=== PATIENT | female | born 1955 | race African-American/Black ===

== ENCOUNTER 2018-06-13 15:21 | Inpatient (IN) | payer MEDICARE ==
[~2018-06-13] VITALS: Ht 170.2 cm; Wt 70.3 kg
[2018-06-13] MEDS ORDERED: DIATRIZOATE MEGL/DIATRIZOA SOD 30 ML BTL PO ONE ×2 (16:24→17:41)
--- NOTE | 2018-06-13 17:10 | Diagnostic Imaging Report ---
Abdomen/KUB INDICATION: ^g-tube replacement, with gastrografin COMPARISON: None. FINDINGS: Portable, supine image obtained at 1635 hours after the instillation of water-soluble contrast through a percutaneous gastrostomy. The patient is rotated. Medical Devices: Percutaneous gastrostomy in the upper abdomen. It is surrounded by enteric contrast. Bowel: There is no enteric contrast outlining the stomach or bowel. No dilated bowel loops. There is little bowel air. Calcifications: None Organomegaly: None Lung bases: Left lung base is clear. Bones: Unremarkable IMPRESSION: Contrast surrounds the percutaneous gastrostomy. It cannot be confirmed if it is within the stomach. Recommend repeat imaging with better positioning of the patient. Crosstable lateral image is recommended to confirm subcutaneous instillation of contrast. Signed by: Dr. Juanjose Singer MD on 06/13/2018 5:07 PM
--- NOTE | 2018-06-13 18:14 | Diagnostic Imaging Report ---
Abdomen/KUB INDICATION: ^ASSESS G-TUBE PLACEMENT COMPARISON: Abdomen x-ray 1635 hours. FINDINGS: AP and crosstable lateral images of the abdomen obtained at 1746 hours Medical Devices: Percutaneous gastrostomy tube is with in the peritoneum. There is water-soluble contrast in the tube that collects into the left upper quadrant it does not confine to normal gastric contours. A percutaneous catheter is in the right hemiabdomen. Bowel: No enteric contrast in the small bowel or large bowel. There is a large amount of stool throughout the colon. No dilated small bowel loops. Calcifications: None Organomegaly: None Bones: Unremarkable IMPRESSION: Percutaneous gastrostomy is intraperitoneal but not within the stomach. Large amount of stool in the colon consistent with constipation. No bowel obstruction. Signed by: Dr. Juanjose Singer MD on 06/13/2018 6:11 PM
--- NOTE | 2018-06-13 19:05 | NUR ---
RECIEVED REPORT FROM GAVIN SALAZAR DAY SHIFT NURSE.
[2018-06-13] MEDS ORDERED: SODIUM CHLORIDE 0.9% 1000ML 1,000 ML IV ONE (19:15)
--- NOTE | 2018-06-13 19:30 | NUR ---
PT HAS BM. [facility] ON PT.
[2018-06-13] MEDS ORDERED: PANTOPRAZOLE 40 MG 10ML VIAL IV ONE (20:00)
[2018-06-13] MEDS ORDERED: SODIUM CHLORIDE 0.9% 1000ML 1,000 ML IV SCH (20:15)
[2018-06-13 21:45] LABS: BASOPHILS % 0.4 % (0.0-1.0); EOSINOPHILS # (AUTO) 0.3 (0.0-0.4); EOSINOPHILS % 3.4 % (0.0-6.0); HEMATOCRIT 33.9 % (38.2-49.6); LYMPHOCYTES # (AUTO) 0.6 (1.0-3.2); LYMPHOCYTES % 5.6 % (18.0-39.1); MEAN CORPUSCULAR HEMOGLOBIN 25.1 pg (28-32); MEAN CORPUSCULAR HGB CONC 32.4 g/dL (31-35); MEAN CORPUSCULAR VOLUME 77.4 fL (81-99); MONOCYTES # (AUTO) 0.7 (0.2-0.8); MONOCYTES % 6.8 % (4.4-11.3); NEUTROPHILS # (AUTO) 8.1 (2.1-6.9); NEUTROPHILS % 83.2 % (38.7-80.0); PLATELET COUNT 139 x10e3/uL (140-360); RED BLOOD COUNT 4.38 x10e6/uL (4.3-5.7); RED CELL DISTRIBUTION WIDTH 17.3 % (11.7-14.4)
[2018-06-13 22:07] LABS: ALANINE AMINOTRANSFERASE 20 IU/L (0-55); ALBUMIN/GLOBULIN RATIO 0.7 (0.8-2.0); ALKALINE PHOSPHATASE 100 IU/L (40-150); ANION GAP 14.2 mmol/L (8-16); BLOOD UREA NITROGEN 6 mg/dL (7-26); BUN/CREATININE RATIO 11 (6-25); CALCIUM 9.2 mg/dL (8.4-10.2); CARBON DIOXIDE 19 mmol/L (22-29); CHLORIDE 88 mmol/L (98-107); CREATININE, SERUM 0.55 mg/dL (0.72-1.25); EST GLOMERULAR FILTRATION RATE > 60 ML/MIN (60-); GLUCOSE 91 mg/dL (74-118); MAGNESIUM 1.7 MG/DL (1.3-2.1); POTASSIUM 4.2 mmol/L (3.5-5.1)
--- NOTE | 2018-06-13 22:13 | Diagnostic Imaging Report ---
EXAMINATION: CHEST XRAY LINE PLACEMENT INDICATION: VERIFY LINE PLACEMENT. COMPARISON: None FINDINGS: AP view TUBES and LINES: Right upper extremity PICC loops over the expected internal jugular vein before coursing inferiorly with tip overlying the expected brachiocephalic vein/brachiocephalic confluence. Tracheostomy tube in place. LUNGS: Interstitial opacities extending from the [place] to the periphery. PLEURA: No pleural effusion or pneumothorax. HEART AND MEDIASTINUM: The cardiomediastinal silhouette is unremarkable. BONES AND SOFT TISSUES: No acute osseous lesion. Soft tissues are unremarkable. UPPER ABDOMEN: No free air under the diaphragm. IMPRESSION: Right upper extremity PICC loops over the expected right internal jugular vein before coursing inferiorly with tip overlying the expected right brachiocephalic vein/brachiocephalic confluence. Mild interstitial edema. Signed by: DR. Marshall Hopkins MD on 06/13/2018 10:10 PM
[2018-06-13 22:31] LABS: SODIUM 117 mmol/L (136-145)
[2018-06-13 23:30] VITALS: BP 135/60
--- OUTSIDE RECORDS SUMMARY | 2018-06-13 23:56 | XMS REPORT | Continuity of Care Document ---
Author Author [facility] Interface Address Unknown Phone Unavailable Problems Problem Status Onset Date Classification Date Reported Comments Source CVA NON HEMORRHAGIC Active 02/28/[address] [facility] STROKE SYMPTOMS Active 02/26/2018 [facility] ALTERED MENTAL STATUS, FLACCID HEMIPLEGI Active 02/26/2018 [facility] ALTERED MENTAL STATUS, UNSPECIFIED Active [facility] FLACCID HEMIPLEGIA AFFECTING RIGHT DOMIN Active [facility] ACUTE RESPIRATORY FAILURE WITH HYPOXIA Active [facility] ILLNESS, UNSPECIFIED Active [facility] Medications Medication Details Route Status Patient Instructions Ordering Provider Order Date Source Allergies, Adverse Reactions, Alerts Substance Category Reaction Severity Reaction type Status Date Reported Comments Source Immunizations Immunization Date Given Site Status Last Updated Comments Source Results Order Name Results Value Reference Range Date Interpretation Comments Source Chest 1view DX Chest 1view DX Clinical History : , respiratory failure - respiratory failure Exam : Portable AP view of the chest 03/12/2018 8:24 PM CDT Comparisons : Portable AP view of the chest 03/09/2018 Findings : There is a tracheostomy with its tip at the thoracic inlet. There is a left PICC with its tip in the proximal SVC. There is mild diffuse peribronchial thickening throughout the lungs bilaterally. There is patchy bibasilar airspace disease with a small left pleural effusion. The heart is stable in size. The mediastinal contours are distorted by patient rotation to the right . The thoracic spine is age appropriate. The shoulders are unremarkable. Limited evaluation of the upper abdomen demonstrates no gross abnormalities. Impression: 1. Life-support lines and tubes in stable position. 2. Peribronchial thickening with patchy bibasilar airspace disease and small left effusion. 03/12/2018 - - Read by: Delonte Crooks MD Dictated Date/time: 03/12/18 23:08 Electronically Signed by: Delonte Crooks MD 03/12/18 23:08 FINAL REPORT [facility] Ext Upper Venous Doppler Bilat US Ext Upper Venous Doppler Bilat US Ext Upper Venous Doppler Bilat US 03/09/2018 9:18 AM CDT HISTORY/INDICATIONS:62 years Male - fever, dvt? Upper extremity swelling TECHNIQUE: Grayscale and Doppler ultrasound with color and waveform analysis of the venous system of the bilateral upper extremities was performed with compression and augmentation. COMPARISON: None FINDINGS: The right internal jugular vein could not be fully assessed because of the presence of a tracheostomy tube color. The right radial and ulnar veins were not identified. The right cephalic vein is not fully compressible and has some faint internal echoes and no Doppler detectable blood flow, indicating thrombotic occlusion. The deep veins of the left upper extremity are compressible and show good augmentation of flow and no evidence of acute or chronic clot. IMPRESSION: 1. 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 The right ulnar and radial veins were not identified. 2. No evidence of deep venous thrombosis in the left internal jugular vein and left upper extremity veins.. [id number] 03/09/2018 - - Read by: Obinna Van MD Dictated Date/time: 03/09/18 12:53 Electronically Signed by: Obinna Van MD 03/09/18 12:57 FINAL REPORT [facility] Ext Lower Venous Doppler Bilat US Ext Lower Venous Doppler Bilat US Clinical history: - fever, dvt?. AGE:62 years GENDER:Male TECHNIQUE: Bilateral lower extremity askew scale and duplex venous doppler ultrasound with spectral analysis. FINDINGS: Right lower extremity: Common Femoral Vein: Normal flow, compression and augmentation. Femoral Vein: Normal flow, compression and augmentation. Popliteal Vein: Normal flow, compression and augmentation. Posterior Tibial Veins: Normal flow, compression and augmentation. Soft tissues: No mass or cyst. Left lower extremity: Common Femoral Vein: Normal flow, compression and augmentation. Femoral Vein: Normal flow, compression and augmentation. Popliteal Vein: Normal flow, compression and augmentation. Posterior Tibial Veins: Normal flow, compression and augmentation. Soft tissues: No mass or cyst. Impression: No evidence for DVT in the bilateral lower extremities. 03/09/2018 - - Read by: Pepe Martel MD Dictated Date/time: 03/09/18 12:37 Electronically Signed by: Pepe Martel MD 03/09/18 12:38 FINAL REPORT [facility] Chest 1view DX Chest 1view DX HISTORY: - fever? TECHNIQUE: Single AP view of the chest at 9:15. COMPARISON: Study dated 03/07/2018. FINDINGS/IMPRESSION: 1. Tracheostomy tube remains in place. Stable satisfactory positioning of left PICC. 2. Trace pleural effusions are again suspected with patchy bibasilar airspace opacities, left greater than right, which are stable from time of prior exam. Platelike atelectasis is again seen in the right midlung zone. 3. The heart is normal in size with mild central pulmonary vascular congestion seen. 4. No evidence of pneumothorax. [id number] 03/09/2018 - - Read by: Yifan Read MD Dictated Date/time: 03/09/18 09:33 Electronically Signed by: Yifan Read MD 03/09/18 09:35 FINAL REPORT [facility] Chest 1view DX Chest 1view DX EXAM: CHEST 1 VIEW XR DATE: 03/07/2018 7:31 AM CDT . TECHNIQUE: AP view of the chest ORDERING PHYSICIAN: Satish Pink MD CLINICAL INDICATION: - leuokcytosis with low grade fever; COMPARISON: 02/25/2018 chest x-ray FINDINGS: SEE BELOW IMPRESSION: 1. Life-support: -- Nasogastric tube has been normal. Left arm PICC line tip is stable overlying the upper SVC. -- Tracheostomy overlies the airway. 2. Suspected small bilateral pleural effusions and left greater the right basal airspace opacities worrisome for pneumonia given history. There is new platelike atelectasis in the right upper lobe. 3. Stable heart and mediastinal contours 03/07/2018 - - Read by: Bay Resendez MD Dictated Date/time: 03/07/18 08:55 Electronically Signed by: Bay Resendez MD 03/07/18 08:57 FINAL REPORT [facility] Gastric tube placement VR Gastric tube placement VR PROCEDURE: Gastrostomy tube placement Procedural Personnel Attending physician(s): Dayron Peterson MD Pre-procedure diagnosis: Dysphagia, supplemental enteral nutrition needed Post-procedure diagnosis: Same Indication: Nutritional support Additional clinical history: None Complications: No immediate complications. IMPRESSION: Percutaneous placement of 18 Bahraini push-type gastrostomy tube. Plan: Gastrostomy tube can be used in am. PROCEDURE SUMMARY: - Gastrostomy tube placement under fluoroscopic guidance - Additional procedure(s): None PROCEDURE DETAILS: Pre-procedure Consent: Informed consent for the procedure including risks, benefits and alternatives was obtained and time-out was performed prior to the procedure. Preparation: The site was prepared and draped using maximal sterile barrier technique including cutaneous antisepsis. Anesthesia/sedation Level of anesthesia/sedation: Monitored anesthesia care Anesthesia/sedation administered by: Anesthesiology Total intra-service sedation time (minutes): N/A Gastrostomy tube placement The liver margin was localized by ultrasound. A catheter was passed through the nose and into the stomach under fluoroscopic guidance. Local anesthesia was administered. The stomach was inflated with air and judged appropriate for access. 2 T-fasteners were placed under fluoroscopic guidance. The stomach was accessed and a wire was placed. The tract was dilated, the gastrostomy tube was advanced into the stomach, and intragastric position was confirmed with contrast injection. The tube was capped. Gastrostomy tube placed: 18 F Dual lumen Internal catheter securement: Balloon External catheter securement: Retention disc Contrast Contrast agent: Omnipaque 300 Contrast volume (mL): 10 Radiation Dose Fluoroscopy time (minutes): 1 Kerma area product (uGy-m2): 342.01 Additional Details Additional description of procedure: None Equipment details: None Specimens removed: None Estimated blood loss (mL): Less than 10 Standardized report: [id number] Attestation Signer name: Dayron Peterson MD I attest that I was present for the entire procedure. I reviewed the stored images and agree with the report as written. 03/05/2018 - - Read by: Dayron Peterson MD Dictated Date/time: 03/14/18 14:21 Electronically Signed by: Dayron Peterson MD 03/14/18 14:26 FINAL REPORT [facility] Abdomen RUQ US Abdomen RUQ US EXAM: US ABDOMEN RIGHT UPPER QUADRANT INDICATION: - concern for cholecystitis COMPARISON: CT scan 03/04/2018 TECHNIQUE: Multiplanar grayscale and color Doppler ultrasound of the right upper quadrant of the abdomen.. FINDINGS: Liver: Craniocaudal length: 13.1 cm. Echogenicity: Unremarkable Surface: Unremarkable Mass: Cyst is seen measuring 9 mm Portal vein: Hepatopetal in flow. Unremarkable in size. Gallbladder: Gallbladder sludge is noted. Wall Thickness: 0.3 cm. Pericholecystic fluid: None. Sonographic Dominguez sign: Negative Bile ducts: Common bile duct : 0.2 cm. Intrahepatic ducts: Unremarkable Pancreas: Not adequately seen Right kidney: Size: 11.5 x 5.4 x 4.9 cm. Hydronephrosis: None. Echogenicity: Unremarkable Calculi/Cysts/Masses: None. Ascites: None. IMPRESSION: 1. Gallbladder sludge is noted. No sonographic evidence for cholecystitis. 03/05/2018 - - Read by: Bharat Garcia MD Dictated Date/time: 03/05/18 15:56 Electronically Signed by: Bharat Garcia MD 03/05/18 16:37 FINAL REPORT [facility] Chest 1view DX Chest 1view DX EXAM: CHEST 1 VIEW XR DATE: 03/05/2018 9:14 AM CDT . TECHNIQUE: AP view of the chest ORDERING PHYSICIAN: Sebastian Ramirez MD CLINICAL INDICATION: - TRACH PLACEMENT; COMPARISON: 02/28/2018 chest x-ray FINDINGS: SEE BELOW IMPRESSION: 1. Life-support: -- Tracheostomy is in good position overlying the airway. -- Left arm PICC line tip is at the junction of the innominate vein and SVC. 2. Small bilateral pleural effusions. There is pulmonary venous congestion. There is no dense pulmonary consolidation 3. Stable heart and mediastinal contours 03/05/2018 - - Read by: Bay Resendez MD Dictated Date/time: 03/05/18 09:48 Electronically Signed by: Bay Resendez MD 03/05/18 09:49 FINAL REPORT [facility] Abdomen/Pelvis wo IV contrast CT Abdomen/Pelvis wo IV contrast CT INDICATION: Abdominal distention COMPARISON: KUB 02/28/2018 TECHNIQUE: Helical acquisition of the abdomen and pelvis was obtained from the lung bases to the pubic symphysis. Axial, sagittal and coronal images MPR were interpreted. This exam was performed according to our department dose optimization protocol, which includes automated exposure control, adjustment of the mA and/or kV according to patient size and/or use of iterative reconstruction technique. IV contrast: None Enteric contrast: None. DLP: 782 mGy-cm FINDINGS: Lower thorax: There are small bilateral pleural effusions with consolidation in the lower lobes Liver: Unremarkable. Gallbladder and Biliary tree: : Distended and shows small stones. The wall is somewhat indistinct and it could be pericholecystic inflammation raising suspicion for cholecystitis. There is no biliary duct dilation. Pancreas: Unremarkable. Spleen: Unremarkable. Adrenals: Unremarkable. Kidneys and ureters: Unremarkable. Urinary bladder: Decompressed by a Morejon catheter Reproductive organs: No CT abnormality. Gastrointestinal tract/appendix: There is some fluid distention of the colon which is nonspecific. Stomach and small bowel are unremarkable. NG tube is in the mid gastric region. Peritoneum, mesentery and retroperitoneum: Unremarkable. No peritoneal fluid. No pneumoperitoneum. Lymph nodes: Unremarkable. Vasculature: Grossly unremarkable Bones: There are degenerative changes most prominent in the lower thoracic spine. Soft tissues: Unremarkable. Other: None. IMPRESSION: 1. Abnormal appearance of the gallbladder suggesting possible cholecystitis. Please correlate clinically. 2. Mild fluid distention of the colon which is nonspecific. 03/04/2018 - - Read by: Valdemar Hall MD Dictated Date/time: 03/04/18 23:20 Electronically Signed by: Valdemar Hall MD 03/04/18 23:24 FINAL REPORT [facility] Abdomen AP DX Abdomen AP DX CLINICAL HISTORY: - distention w/ vomiting AGE: 62 years GENDER: Male TECHNIQUE: Abdominal radiographs, 1 view. COMPARISON: 02/27/2018 FINDINGS: No dilated loops of large or small bowel. Moderate gaseous distention of the colon. Air is seen in the distal colon and rectum. NG tube with tip in the distal gastric body. IMPRESSION: Nonobstructive bowel gas pattern. NG tube with tip in the gastric body. 02/28/2018 - - Read by: Pepe Martel MD Dictated Date/time: 02/28/18 15:57 Electronically Signed by: Pepe Martel MD 02/28/18 15:59 FINAL REPORT [facility] Chest 1 v for Placement DX Chest 1 v for Placement DX CLINICAL HISTORY: Line Placement - Chest 1 view for line placement AGE: 62 years GENDER: Male TECHNIQUE: Single AP, portable chest radiograph, 1 view. COMPARISON: 02/28/2018 FINDINGS: Rotated exam. The cardiomediastinal silhouette demonstrates normal heart size. No focal airspace or interstitial opacities are seen. No pleural effusions. No pneumothorax. Left PICC line with tip in the superior SVC. ET tube with tip 4 cm above the radha. NG tube with tip below the diaphragm, beyond the [id number] of this examination. No significant osseous abnormalities are identified. IMPRESSION: Left PICC line with tip in the superior SVC. 02/28/2018 - - Read by: Pepe Martel MD Dictated Date/time: 02/28/18 15:55 Electronically Signed by: Pepe Martel MD 02/28/18 15:57 FINAL REPORT [facility] Chest 1view DX Chest 1view DX EXAM: Chest radiograph HISTORY: Respiratory failure COMPARISON: 02/27/2018 at 2323 hours TECHNIQUE: Portable frontal view of the chest FINDINGS: Life support lines and cardiomediastinal contour are stable. Possible COPD. No appreciable pneumonia, edema, or significant pleural effusion. SL: [id number] 02/28/2018 - - Read by: Oniel Redman MD Dictated Date/time: 02/28/18 07:01 Electronically Signed by: Oniel Redman MD 02/28/18 07:03 FINAL REPORT [facility] Chest 1view DX Chest 1view DX Clinical Indication: Line Placement - Chest 1 view for line placement Comparison: 02/27/2018 3:19 AM FINDINGS: AP chest radiograph was obtained. MEDIASTINUM: The cardiac silhouette is normal in size. The aorta demonstrates atherosclerotic calcification. There is an endotracheal tube which terminates at the level the clavicles, nasogastric tube which terminates within the abdomen, in the left upper extremity PICC line with the distal tip overlying the superior vena cava. LUNGS: There is mild hazy opacity in the left lung base. Right lung is clear. There are no pneumothoraces or effusions. BONES: The visualized osseous structures are unremarkable. IMPRESSION: 1. Mild left basilar airspace disease. Support devices as described above. SL: [id number] 02/27/2018 - - Read by: Carisa Smith MD Dictated Date/time: 02/27/18 23:34 Electronically Signed by: Carisa Smith MD 02/27/18 23:35 FINAL REPORT [facility] Abdomen AP DX Abdomen AP DX XR ABDOMEN 1V HISTORY: - screening for MRI. COMPARISON: None. FINDINGS: Nonspecific gas pattern. Nasogastric tube noted, tip located over the distal stomach. No organomegaly or significant calcification. No significant skeletal abnormality. IMPRESSION: 1. Nonspecific abdomen, no acute finding. 2. NG tube over the stomach distal stomach. SL: [id number] 02/27/2018 - - Read by: Vishal Hairston MD Dictated Date/time: 02/27/18 11:41 Electronically Signed by: Vishal Hairston MD 02/27/18 11:43 FINAL REPORT [facility] Chest 1view DX Chest 1view DX EXAM: Chest radiograph HISTORY: Respiratory failure COMPARISON: 02/26/2018 at 1329 hours TECHNIQUE: Frontal view of the chest FINDINGS/IMPRESSION: Stable endotracheal and nasogastric tubes. Heart size normal. COPD. Mild interstitial opacities left lower lobe may reflect superimposed vessels, subsegmental atelectasis, or pneumonia. Small pleural effusions bilaterally. Question acute fracture left seventh rib. SL: [id number] 02/27/2018 - - Read by: Oniel Redman MD Dictated Date/time: 02/27/18 07:08 Electronically Signed by: Oniel Redman MD 02/27/18 07:11 FINAL REPORT [facility] Neck wo contrast MRA Neck wo contrast MRA Clinical Indication: - right hemiplegia Comparison: None Technique: Magnetic resonance angiography of the neck was performed without gadolinium contrast with time of flight technique. 3-D maximum intensity projection images were obtained. FINDINGS: The origins of the right brachiocephalic artery, right common carotid artery, right subclavian artery, right vertebral artery, left common carotid artery, left subclavian artery and left vertebral artery are widely patent. Bilateral common carotid arteries are widely patent. There is occlusion of the origin and transcervical left internal carotid artery. External carotid arteries patent. The right internal carotid artery/carotid bulb is patent without significant stenosis by NASCET criteria. Bilateral external carotid arteries are patent. Bilateral vertebral arteries are widely patent without stenosis. The visualized intracranial segments of the vertebral arteries are widely patent. The source images show no evidence of carotid or vertebral artery dissection. Any reported ICA stenoses directly reference the distal internal carotid diameter as the denominator for stenosis measurement. 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 SL: [id number] 02/26/2018 - - Read by: Chace Chung MD Dictated Date/time: 02/27/18 17:50 Electronically Signed by: Chace Chung MD 02/27/18 17:51 FINAL REPORT [facility] Brain wo contrast MRI Brain wo contrast MRI Clinical Indication: - right hemiplegia Comparison: Comparison is made to CT study 02/26/2018 TECHNIQUE: Multiplanar pre- and post-gadolinium contrast-enhanced MRI of the brain is performed on a 1.5 Kareen magnet. Contrast: None. FINDINGS: BRAIN PARENCHYMA: There is a nonhemorrhagic infarct of the left supratentorial hemisphere in the left carotid distribution with occlusion of the petrous, precavernous and cavernous portion of the internal carotid artery. There is flow in a diminished caliber supraclinoid segment. There is occlusion of the M1 segment of the middle cerebral artery with infarction of the medial/lateral basal ganglia and supratentorial hemisphere. There is cytotoxic edema. There is minimal attenuation of body left lateral ventricle. Normal flow is seen from the 4th portions of both vertebral arteries and the basilar artery and right internal carotid artery. There is diffuse cortical and central atrophy the supratentorial infratentorial brain. Sella and parasellar structures are grossly normal. There is no cerebellar tonsillar ectopia. CEREBELLOPONTINE REGIONS AND SKULL BASE: The cerebellopontine angles appear unremarkable. The skull base, craniocervical junction, and brainstem are normal. The optic chiasm is normal. The sellar and pineal regions are unremarkable. VENTRICLES: The ventricles are normal in size and configuration. The basilar cisterns are normal. VESSELS: The venous sinuses are grossly unremarkable. The expected intracranial flow voids are present. ORBITS, VISUALIZED PARANASAL SINUSES AND MASTOIDS: The visualized orbits and paranasal sinuses are unremarkable. The mastoid air cells are clear. IMPRESSION: There is a nonhemorrhagic infarct of the left supratentorial hemisphere in the left carotid distribution with occlusion of the petrous, precavernous and cavernous portion of the internal carotid artery. There is flow in a diminished caliber supraclinoid segment. There is occlusion of the M1 segment of the middle cerebral artery with infarction of the medial/lateral basal ganglia and supratentorial hemisphere. There is cytotoxic edema. There is minimal attenuation of body left lateral ventricle. The results of study were reported to the referring physician at the time of dictation. SL: [id number] 02/26/2018 - - Read by: Chace Chung MD Dictated Date/time: 02/27/18 17:06 Electronically Signed by: Chace Chung MD 02/27/18 17:12 FINAL REPORT [facility] Brain wo contrast MRA Brain wo contrast MRA Clinical Indication: - right hemiplegia Comparison: None Technique: Magnetic resonance angiography of the [place] was performed without contrast. 3D reconstructed images were created. FINDINGS: There is occlusion of the petrous, precavernous and cavernous left internal carotid artery. Through the left posterior communicating artery and the A1 segment of the left anterior cerebral artery, there is reconstitution of the distal superior clinoid segment, which is of diminutive caliber. There is occlusion of the proximal M1, left middle cerebral artery. There is flow in the bilateral A1 and proximal A2 segments. The MR study demonstrating a nonhemorrhagic infarct of the left hemisphere involving the basal ganglia and hemisphere. The right M1 and M2 segments are patent. Bilateral vertebral arteries, basilar artery, and posterior cerebral arteries are unremarkable. Posterior communicating arteries are unremarkable. There is no aneurysm, vascular malformation, or significant atherosclerotic disease. 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 Through the left posterior communicating artery and the A1 segment of the left anterior cerebral artery, there is reconstitution of the distal superior clinoid segment, which is of diminutive caliber. There is occlusion of the proximal M1, left middle cerebral artery. There is patency of the bilateral A2 segments, however on the MR exam there is infarction in the distribution of the left A2 segment. SL: [id number] 02/26/2018 - - Read by: Chace Chung MD Dictated Date/time: 02/27/18 17:19 Electronically Signed by: Chace Chung MD 02/27/18 17:23 FINAL REPORT [facility] Abdomen AP DX Abdomen AP DX Abdomen AP DX 02/26/2018 1:46 PM CDT Ordering Physician: Radha Casey MD CLINICAL INDICATION: - Line Placement; COMPARISON: None TECHNIQUE: Routine supine AP views of the abdomen were obtained. FINDINGS: Scattered gas filled loops of bowel are present without pathologic dilatation. No free air is seen. NG tube side port is at the gastroesophageal junction. No pathologic calcification is identified. No acute osseous abnormality is evident. IMPRESSION: NG tube side port at the gastroesophageal junction. Further advancement of several centimeters into the stomach is advised. SL: [id number] 02/26/2018 - - Read by: Yifan Yoon MD Dictated Date/time: 02/26/18 14:29 Electronically Signed by: Yifan Yoon MD 02/26/18 14:29 FINAL REPORT [facility] Brain wo contrast CT Brain wo contrast CT Clinical Indication: - L MCA syndrome. R hemiplegia, L eye deviation; Comparison: 02/26/2018 TECHNIQUE: CT images were obtained from the foramen magnum to the vertex without the use of intravenous contrast on a multidetector CT. Coronal and sagittal reconstructions were obtained. CT radiation dose DLP: 1029.93 mGy-cm CT imaging performed at this location utilizes radiation dose optimization techniques which include one or more of the following: -Automated exposure control -Adjustment of the mA and/or kV according to patient size -Use of iterative reconstruction technique FINDINGS: BRAIN PARENCHYMA: There is generalized brain parenchymal atrophy related to the patient's age. Moderate nonspecific periventricular white matter disease changes are noted. Atherosclerotic calcifications are present within the carotid siphons and distal vertebral arteries. There are no focal mass lesions on this noncontrast head CT. There is no mass effect, midline shift or edema. There are no intra-axial or extra-axial fluid collections, intraventricular or intraparenchymal hemorrhage. There is no noncontrast CT evidence of a subacute stroke. The pineal, sellar, brainstem, cerebellum and skull base regions appear unremarkable. VENTRICLES: There is moderate enlargement of lateral ventricles. The 3rd and 4th ventricles demonstrate no abnormality. The basilar cisterns are normal. ORBITS, MASTOIDS AND PARANASAL SINUSES: The visualized orbits are unremarkable. There is mucoperiosteal thickening of the right maxillary sinus. The mastoid air cells are clear. SKULL: There are no calvarial abnormalities seen. If there is further concern for intracranial pathology or acute stroke, MRI of the brain may be performed for complete assessment. IMPRESSION: Chronic age-related and small vessel ischemic changes without mass, hemorrhage or subacute stroke. SL: [id number] 02/26/2018 - - Read by: Wilian Mota MD Dictated Date/time: 02/26/18 14:21 Electronically Signed by: Wilian Mota MD 02/26/18 14:24 FINAL REPORT [facility] Chest 1view DX Chest 1view DX Clinical Indication: Altered mental status; Comparison: None FINDINGS: AP chest radiographs shows normal lung volumes with small right pleural effusion. Is no focal infiltrate or pneumothorax. There is elevation of the right hemidiaphragm. The heart size and pulmonary vasculature are normal. The trachea is midline. There is an endotracheal tube identified with the tip terminates approximately 7 cm above the radha. There is also an enteric tube with the tip terminating below the field of view. There are no clinically significant osseous abnormalities noted. IMPRESSION: 1. Small right pleural effusion. 2. Status post intubation and enteric tube placement. SL: [id number] 02/26/2018 - - Read by: Wilian Mota MD Dictated Date/time: 02/26/18 13:38 Electronically Signed by: Wilian Mota MD 02/26/18 13:39 FINAL REPORT [facility] Brain wo contrast CT Brain wo contrast CT Patient Name: DENILSON LEMOS : 1955; Age: 62 years y/o Male MR: [id number] Study: Brain wo contrast CT 02/26/2018 12:30 PM CDT Ordering Physician: Radha Casey MD Clinical Indication: - L gaze deviation, R hemiplegia x 1 week; Comparison: None TECHNIQUE: CT images were obtained from the foramen magnum to the vertex without the use of intravenous contrast on a multidetector CT. Coronal and sagittal reconstructions were obtained. CT imaging performed at this location utilizes radiation dose optimization techniques which include one or more of the following: -Automated exposure control -Adjustment of the mA and/or kV according to patient size -Use of iterative reconstruction technique CT Radiation Dose DLP 1287 mGy-cm FINDINGS: Motion and streak artifacts limit assessment of the inferior frontotemporal lobes and the posterior fossa. The following observations have been made within these limitations. There is no evidence of acute intracranial hemorrhage, subacute territorial infarct, mass effect, midline shift, extra-axial fluid collection, hydrocephalus or other acute abnormalities. There is moderate generalized cerebral volume loss with associated ventricular prominence. There are moderate nonspecific supratentorial white matter ill- defined hypodensities likely representing chronic small vessel ischemic changes in this age. There are no chronic territorial infarcts. There are calcifications in the carotid siphons and intradural vertebral arteries. The calvarium, paranasal sinuses and mastoids are unremarkable. IMPRESSION: Evaluation is limited by motion artifacts. No evidence of acute intracranial process. Moderate age-related and chronic ischemic changes. If there is further concern for intracranial pathology or acute stroke, further assessment with an MRI of the brain should be considered. SUN: MICHAEL 02/26/2018 - - Read by: Caitie Manley Dictated Date/time: 02/26/18 13:13 Electronically Signed by: Caitie Manley 02/26/18 13:18 FINAL REPORT [facility] Vital Signs Vital Sign Value Date Comments Source Encounters Location Location Details Encounter Type Encounter Number Reason For Visit Attending Provider ADM Date DC Date Status Source Procedures Procedure Code Date Perfomer Comments Source
--- OUTSIDE RECORDS SUMMARY | 2018-06-13 23:56 | XMS REPORT ---
Author Author [facility] Address Unknown Phone Unavailable Care Team Providers Care Cut Lace Machine Operator Name Role Phone Killian SANTA Unavailable Unavailable Problems This patient has no known problems. Allergies, Adverse Reactions, Alerts This patient has no known allergies or adverse reactions. Medications This patient has no known medications. Results Test Description Test Time Test Comments Text Results Atomic Results Result Comments CHEST XRAY LINE PLACEMENT 2018-06-13 22:06:00 [place] [address] Patient Name: DENILSON LEMOS MR #: [id number] : 1955 Age/Sex: 62/M Req #: [id number] Adm Physician: Ordered by: OSORIO SANTA MD Report #: [id number] Location: ER Room/Bed: Procedure: [id number] DX/CHEST XRAY LINE PLACEMENT Exam Date: 06/13/18 Exam Time: 2000 REPORT STATUS: Signed EXAMINATION: CHEST XRAY LINE PLACEMENT INDIC ATION: VERIFY LINE PLACEMENT. COMPARISON: None FINDINGS: AP view TUBES and LINES: Right upper extremity PICC loops over the expected internal jugular vein before coursing inferiorly with tip overlying the expected brachiocephalic vein/brachiocephalic confluence. Tracheostomy tube in place. LUNGS: Interstitial opacities extending from the peyton to the periphery. PLEURA: No pleural effusion or pneumothorax. HEART AND MEDIASTINUM: The cardiomediastinal silhouette is unremarkable. BONES AND SOFT TISSUES: No acute osseous lesion. Soft tissues are unremarkable. UPPER ABDOMEN: No free air under the diaphragm. IMPRESSION: Right upper extremity PICC loops over the expected right internal jugular vein before coursing inferiorly with tip overlying the expected right brachiocephalic vein/brachiocephalic confluence. Mild interstitial edema. Signed by: DR. Marshall Perez MD on 06/13/2018 10:10 PM Dictated By: PIETRO PEREZ MD 09 Transcribed By: WEI on 06/13/182209 COPY TO: OSORIO SANTA MD ABDOMEN-1VIEW (KUB) 2018-06-13 18:07:00 [place] [address] Patient Name: DENILSON LEMOS MR #: [id number] : 1955 Age/Sex: 62/F Req #: [id number] Adm Physician: Ordered by: OSORIO SANTA MD Report #: [id number] Location: ER Room/Bed: Procedure: [id number] DX/ABDOMEN-1VIEW (KUB) Exam Date: Exam Time: REPORT STATUS: Signed Abdomen/KUB INDICATION: ASSESS G-TUBE PLACEMENT COMPARIS ON: Abdomen x-ray 1635 hours. FINDINGS: AP and crosstable lateral images of the abdomen obtained at 1746 hours Medical Devices: Percutaneous gastrostomy tube is with in the peritoneum. There is water-soluble contrast in the tube that collects into the left upper quadrant it does not confine to normal gastric contours. A percutaneous catheter is in the right hemiabdomen. Bowel: No enteric contrast in the small bowel or large bowel. There is a large amount of stool throughout the colon. No dilated small bowel loops. Calcifications: None Organomegaly: None Bones: Unremarkable IMPRESSION: Percutaneous gastrostomy is intraperitoneal but not within the stomach. Large amount of stool in the colon consistent with constipation. No bowel obstruction. Signed by: Dr. Marshall Singer MD on 06/13/2018 6:11 PM Dictated By: MARSHALL SINGER MD 10 Transcribed By: WEI on 06/13/181810 COPY TO: OSORIO SANTA MD ABDOMEN-1VIEW (KUB) 2018-06-13 17:05:00 [place] [address] Patient Name: DENILSON LEMOS MR #: [id number] : 1955 Age/Sex: 62/F Req #: [id number] Adm Physician: Ordered by: OSORIO SANTA MD Report #: [id number] Location: ER Room/Bed: Procedure: [id number] DX/ABDOMEN-1VIEW (KUB) Exam Date: Exam Time: REPORT STATUS: Signed Abdomen/KUB INDICATION: g-tube replacement, with gastrografi n COMPARISON: None. FINDINGS: Portable, supine image obtained at 1635 hours after the instillation of water-soluble contrast through a percutaneous gastrostomy. The patient is rotated. Medical Devices: Percutaneous gastrostomy in the upper abdomen. It is surrounded by enteric contrast. Bowel: There is no enteric contrast outlining the stomach or bowel. No dilated bowel loops. There is little bowel air. Calcifications: None Organomegaly: None Lung bases: Left lung base is clear. Bones: Unremarkable IMPRESSION: Contrast surrounds the percutaneous gastrostomy. It cannot be confirmed if it is within the stomach. Recommend repeat imaging with better positioning of the patient. Crosstable lateral image is recommended to confirm subcutaneous instillation of contrast. Signed by: Dr. Marshall Singer MD on 06/13/2018 5:07 PM Dictated By: MARSHALL SINGER MD 06 Transcribed By: WEI on 06/13/181706 COPY TO: OSORIO SANTA MD
[2018-06-14] VITALS (8 sets, daily range): BP systolic 118–162; BP diastolic 60–85
[2018-06-14] MEDS: SODIUM CHLORIDE 0.9% 1000ML 1,000 ML IV SCH ×2 (01:02→14:31)
[2018-06-14] MEDS ORDERED: DOCUSATE SODIU100 MG PEG (05:01)
[2018-06-14] MEDS ORDERED: ACETAMINOPHEN650 M1 PEG (05:01)
[2018-06-14] MEDS ORDERED: PEPCID20 MG PEG (05:01)
[2018-06-14] MEDS ORDERED: LEVOTHYROXINE25 MCG PEG (05:01)
[2018-06-14] MEDS ORDERED: LASIX40 MG PEG (05:01)
[2018-06-14] MEDS ORDERED: SEROQUEL25 MG PEG (05:01)
[2018-06-14] MEDS ORDERED: AMANTADINE50 MG/5 ML PEG (05:01)
[2018-06-14] MEDS ORDERED: QUESTRAN PACKET4 GM PEG (05:01)
[2018-06-14] MEDS ORDERED: LACTULOSE20 GM/30 M PEG (05:01)
[2018-06-14] MEDS ORDERED: ASPIRIN CHEW81 MG PEG (05:01)
[2018-06-14] MEDS ORDERED: ATORVASTATIN CA20 MG PEG (05:01)
[2018-06-14] MEDS ORDERED: HYDRALAZINE HCL10 MG PEG (05:01)
[2018-06-14] MEDS ORDERED: ZOFRAN4 MG/5 ML PEG (05:01)
[2018-06-14] MEDS ORDERED: COMBIVENT RESPIM4 GM IH (05:01)
[2018-06-14] MEDS ORDERED: COREG3.125 MG PEG (05:01)
--- NOTE | 2018-06-14 06:30 | NUR ---
PT UNABLE TO SIGN THE CONSENT FOR EGD WITH PEG PLACEMENT,TELEPHONE CONSENT OBTAINED FROM MORGAN KNUTSON(DAUGHTER) WITH THE CHARGE NURSE.
[2018-06-14 10:12] LABS: INR 1.05; PROTHROMBIN TIME 14.6 seconds (11.9-14.5)
[2018-06-14 10:13] LABS: PARTIAL THROMBOPLASTIN TIME 41.9 seconds (23.8-35.5)
[2018-06-14 10:27] LABS: ANION GAP 11.7 mmol/L (8-16); BLOOD UREA NITROGEN 5 mg/dL (7-26); BUN/CREATININE RATIO 9 (6-25); CARBON DIOXIDE 22 mmol/L (22-29); CHLORIDE 88 mmol/L (98-107); CREATININE, SERUM 0.56 mg/dL (0.72-1.25); EST GLOMERULAR FILTRATION RATE > 60 ML/MIN (60-); GLUCOSE 99 mg/dL (74-118); POTASSIUM 3.7 mmol/L (3.5-5.1)
[2018-06-14 10:31] LABS: SODIUM 118 mmol/L (136-145)
--- NOTE | 2018-06-14 10:38 | NUR ---
Dr. Letha Elliott notified of 118 sodium.
[2018-06-14] MEDS ORDERED: DOCUSATE SODIUM 100 MG CAP PEG SCH (11:15)
[2018-06-14] MEDS ORDERED: LACTULOSE SYRUP 20 GM/30 ML UDC PEG PRN (11:15)
[2018-06-14] MEDS ORDERED: HYDRALAZINE HCL 10 MG TAB PEG PRN (11:15)
[2018-06-14] MEDS: DOCUSATE SODIUM LIQD 100 MG/10 ML UDC PEG SCH ×2 (11:30→20:48)
--- NOTE | 2018-06-14 11:51 | NUR ---
OR nurse Patricia aware of 118 Sodium.
[2018-06-14] MEDS: IPRATROPIUM/ALBUTEROL SULFATE 4 GM INH INH SCH ×2 (13:00→19:00)
[2018-06-14 13:48] LABS: BLOOD UREA NITROGEN 5 mg/dL (7-26); BUN/CREATININE RATIO 9 (6-25); CALCIUM 8.9 mg/dL (8.4-10.2); CARBON DIOXIDE 22 mmol/L (22-29); CHLORIDE 88 mmol/L (98-107); CREATININE, SERUM 0.56 mg/dL (0.72-1.25); EST GLOMERULAR FILTRATION RATE > 60 ML/MIN (60-); GLUCOSE 101 mg/dL (74-118)
--- NOTE | 2018-06-14 13:51 | NUR ---
PT HAS A TRACH AND DOESNT SPEAK, HE CAN NOD HEAD IN POSITIVE OR NEGATIVE MANNER. UNABLE TO SIGN ODOM.
[2018-06-14 13:53] LABS: SODIUM 119 mmol/L (136-145)
--- NOTE | 2018-06-14 13:55 | NUR ---
SOCIAL WORK INITIAL ASSESSMENT Street Car Inspector to bedside to discuss plan of care with patient/family. CM/SW role and care transitions discussed. Anticipated discharge plan discussed along with duration of care. CM/SW discussed patients right to make decisions in care. CM/SW work hours given. Patient lives: IS FROM [facility] Admit/Transfer: VIA SNF POA/Emergency contact: DAUGHTER IS MORGAN KNUTSON [phone] AND SISTER IS AMINTA KAYE [phone] Current/Previous Home Health: [facility] PCP/Follow-up Care: [facility] Current/Previous DME: BED BOUND Other Services: HAS 2 PRIOR [employer] STROKES Employment Status: DISABLED NEWLY IN [place] Areas of Concerns: FAMILY IS OVERWHELMED Referral Needs: NO Education Needs: IMM/ODOM given and signed (if applicable): ODOM VIA PHONE TO JJ KNUTSON Goal for discharge: RETURN TO [facility] CM/SW left business card at the bedside with contact information. Name and number was also written on the patients whiteboard. Patient verbalized understanding of discussion. CM will follow-up with ongoing discharge and transition of care needs.
--- NOTE | 2018-06-14 14:29 | NUR ---
Per Ele in OR, procedure has been changed to 06/15/18 because of 119 Sodium.
[2018-06-14] MEDS: FAMOTIDINE 20 MG TAB PEG SCH (14:56)
[2018-06-14] MEDS: CARVEDILOL 3.125 MG TAB PEG SCH (14:56)
[2018-06-14] MEDS: CHOLESTYRAMINE 4 GM PACKET PEG SCH ×2 (14:56→20:48)
--- NOTE | 2018-06-14 19:05 | NUR ---
Report given to oncoming shift. Call bills within reach.
--- NOTE | 2018-06-14 19:10 | NUR ---
report received and walking rounds complete.
[2018-06-14] MEDS: QUETIAPINE FUMARATE 25 MG TAB PEG SCH (20:49)
[2018-06-14] MEDS: ATORVASTATIN 40 MG TAB PO SCH (20:53)
--- NOTE | 2018-06-14 20:59 | NUR ---
Pt hads temp of 101.4. Flora removed and temp in room lowered. Pt has no PEG tube access and has a trach. Call put into Dr. Letha Elliott for orders.
[2018-06-14] MEDS ORDERED: ATORVASTATIN 20 MG TAB PEG SCH (21:00)
--- NOTE | 2018-06-14 21:36 | NUR ---
Dr. Letha Elliott returned call; informed of temp of 101. 4. Orders given for Tylenol IV 1000 ml q 6 prn, and to collect blood cultures and urine culture, and start pt on Cefepime 1g IV q 12 and Vancomycin 1g IV q 12 and a Vancomycin trough before the 3rd dose.
[2018-06-14] MEDS: ACETAMINOPHEN 1000 MG/100 ML IV PRN (22:20)
[2018-06-15] VITALS (8 sets, daily range): BP systolic 112–150; BP diastolic 64–83
[2018-06-15] MEDS: CEFEPIME 1GM/NS 0.9% 50 ML 50 ML IV SCH ×3 (00:34→23:30)
[2018-06-15] MEDS: IPRATROPIUM/ALBUTEROL SULFATE 4 GM INH INH SCH ×4 (01:00→19:00)
[2018-06-15] MEDS: SODIUM CHLORIDE 0.9% 1000ML 1,000 ML IV SCH ×2 (01:23→16:49)
[2018-06-15] MEDS ORDERED: VANCOMYCIN 1GM/NS 250 ML 250 ML IV SCH ×2 (01:30)
[2018-06-15] MEDS: VANCOMYCIN 1GM/NS 250 ML 250 ML IV SCH ×2 (02:12→14:11)
[2018-06-15] MEDS: LEVOTHYROXINE SODIUM 50 MCG TAB PEG SCH (05:52)
[2018-06-15 06:16] LABS: BASOPHILS % 0.2 % (0.0-1.0); EOSINOPHILS % 0.3 % (0.0-6.0); HEMATOCRIT 33.4 % (38.2-49.6); HEMOGLOBIN 10.7 g/dL (14.0-18.0); LYMPHOCYTES % 7.2 % (18.0-39.1); MEAN CORPUSCULAR HEMOGLOBIN 25.2 pg (28-32); MEAN CORPUSCULAR VOLUME 78.6 fL (81-99); MONOCYTES # (AUTO) 1.7 (0.2-0.8); NEUTROPHILS # (AUTO) 10.3 (2.1-6.9); NEUTROPHILS % 78.2 % (38.7-80.0); PLATELET COUNT 149 x10e3/uL (140-360); RED BLOOD COUNT 4.25 x10e6/uL (4.3-5.7); RED CELL DISTRIBUTION WIDTH 17.4 % (11.7-14.4)
[2018-06-15 06:30] LABS: ANION GAP 12.6 mmol/L (8-16); BLOOD UREA NITROGEN 5 mg/dL (7-26); BUN/CREATININE RATIO 10 (6-25); CALCIUM 8.3 mg/dL (8.4-10.2); CARBON DIOXIDE 20 mmol/L (22-29); CHLORIDE 94 mmol/L (98-107); EST GLOMERULAR FILTRATION RATE > 60 ML/MIN (60-); GLUCOSE 91 mg/dL (74-118); POTASSIUM 3.6 mmol/L (3.5-5.1); SODIUM 123 mmol/L (136-145)
--- NOTE | 2018-06-15 07:02 | NUR ---
Walking rounds done and report received from night nurse. Patient is in NAD. Respirations are equal and unlabored. Call bills within reach.
[2018-06-15] MEDS: ASPIRIN 81 MG CHEW TAB PEG SCH (08:16)
[2018-06-15] MEDS: DOCUSATE SODIUM LIQD 100 MG/10 ML UDC PEG SCH ×2 (08:17→21:36)
[2018-06-15] MEDS: CARVEDILOL 3.125 MG TAB PEG SCH ×2 (08:17→16:48)
[2018-06-15] MEDS: CHOLESTYRAMINE 4 GM PACKET PEG SCH ×3 (08:17→21:36)
[2018-06-15] MEDS: FUROSEMIDE 40 MG TAB PEG SCH (08:17)
[2018-06-15] MEDS: FAMOTIDINE 20 MG TAB PEG SCH ×2 (08:17→16:48)
[2018-06-15] MEDS: ACETAMINOPHEN 1000 MG/100 ML IV PRN ×2 (08:27→21:00)
[2018-06-15 08:42] LABS: ANISOCYTOSIS SLIGHT; HYPOCHROMASIA SLIGHT; RBC MORPHOLOGY COMMENT NORMAL
[2018-06-15 08:43] LABS: PLATELET ESTIMATE ADEQUATE; PLATELET MORPHOLOGY COMMENT NORMAL
[2018-06-15] MEDS ORDERED: LEVOTHYROXINE SODIUM 25 MCG TABLET PO SCH (09:00)
--- NOTE | 2018-06-15 12:19 | Diagnostic Imaging Report ---
EXAM: Abdomen 1 View INDICATION: ^CHECK FOR WIRE PLACEMENT ^[id number] ^[id number] ^Y COMPARISON: Chest x-ray and KUB dated 06/13/2018 FINDINGS: See impression. IMPRESSION: 1. Catheter and wire are visualized, extending below the left hemidiaphragm with tip overlying gastric cardia. Recommend advancement. 2. Partially seen gas-filled stacked small bowel loops, representing obstruction versus ileus. Signed by: Dr. Romeo Cummings MD on 06/15/2018 12:15 PM
--- NOTE | 2018-06-15 14:05 | NUR ---
Spoke with Dr. Elliott regarding status. He stated pt still febrile today. currently on 2 IV abx. Gave inpatient order.
--- NOTE | 2018-06-15 14:11 | Operative Report ---
DATE OF PROCEDURE: June 15, 2018 REFERRING PHYSICIAN: Dr. Fernandez Christie. PROCEDURES PERFORMED: 1. Esophagogastroduodenoscopy with esophageal dilatation over a wire. 2. Percutaneous endoscopic gastrotomy tube replacement. INDICATIONS FOR PROCEDURE: Patient is [id number], status post tracheostomy. G-tube was dislodged. For EGD and PEG tube replacement. MEDICATION: Patient was done under MAC. Please see anesthesiologist's note. PROCEDURE: With the patient in the supine position, the flexible fiberoptic Olympus gastroscope was introduced into the esophagus under direct visualization without any difficulty. There was some patchy erythema noted in the distal esophagus. A tight stricture was noted at the GE junction that could not be traversed with the scope, and that was dilated over a wire to a size 12 Savary. The scope was then re-introduced into the esophagus and advanced with ease into the stomach, traversing a small hiatal hernia. The mucosa overlying the antrum and the body revealed some patchy areas of erythema. The pylorus appeared to be patent, and that was intubated with ease and the scope was advanced all the way to the 2nd portion of the duodenum. Several duodenal ulcers were noted in the bulb as well as the proximal 2nd portion, some with black exudates in the crater compatible with recent hemorrhage. The scope was then withdrawn back into the stomach and retroflexed, and the mucosa overlying the fundus and the cardia appeared to be within normal limits. The scope was then straightened out. PEG tube replacement was carried out through the old G-tube stoma in the usual fashion. The scope was subsequently withdrawn after documenting a good positioning of the intragastric bumper. Patient tolerated the procedure well. IMPRESSION: 1. Distal esophagitis. 2. Esophageal stricture, tight, at gastroesophageal junction dilated to size 12 Savary over a wire. 3. Small hiatal hernia. 4. Gastritis. 5. Duodenal ulcers, some with stigmata of recent hemorrhage. 6. Percutaneous endoscopic gastrotomy tube insertion carried out through the old gastrotomy-tube stoma in the usual fashion. The patient tolerated the procedure well. PLAN: Apply abdominal binder. Can use the G-tube upon return to floor. Job#: [id number] EV cc:FERNANDEZ CHRISTIE MD
--- NOTE | 2018-06-15 14:45 | NUR ---
Dr Elliott paged to give KUB results prior to starting feeding. possible obstruction of ileus present.
--- NOTE | 2018-06-15 14:55 | NUR ---
WOUND CARE CONSULTATION : INITIAL EVALUATION Michael Avendaño is a 62 year-old bed bound male [facility] ER for pulled PEG tube. He is S/P Peg tube placement, NPO pending resuming of TF. He has a history of CVA with left sided weakness, Incontinence, CHF, UTI, Anemia, and ET tube placement. He is at 40% ATC. Wound care consulted for concerns of Stage II sacral ulcer. On head to toe assessment noted drain to right chest draining yellow/green content. Tube entry site appears healthy, site is dry and well approximated to drain tube without redness or swelling to site. Sacral area presents with old scar tissue with blanchable erythema. Patient is on a alternating pressure mattress. HOB up to 30 degrees.IV Vancomycin 1g running via IV pump during visit through right arm PICC. PICC Line dressing intact. No redness or swelling noted. Also noted abrasion to right upper back that appears to be stable. No Redness and no swelling noted to site. LABS: WBC: 13.13 RBC: 4.25 HGB: 10.9 HCT: 33.4 GLU: 91 RECOMMENDATION: 1. Continue Alternating Pressure Air Mattress 2. Bilateral Heel Protectors while in bed / Offload heels with Pillows 3. Turn and Reposition patient q2h Thank you for the consultation. Addendum: 06/15/18 at 1510 by Alcon Escobedo RN Amended: Links added. Addendum: 06/15/18 at 1513 by Alcon Escoebdo RN 4. Sacral Area - Allevyn Foam Sacrum Daily.
--- NOTE | 2018-06-15 15:14 | NUR ---
Nutrition Intervention Note RD Recommendation(s) for Physician: - If GI is ok to use, rec continuous TF with Jevity 1.2 @ 65mL/hr providing 1872kcal, 87g protein, and 1260mL fluids. meet 100% of est calorie and 97% est protein needs. - Rec free water flushes of 30mL q 4hr, additional per MD discretion. - Monitor daily labs, GI tolerance, weights; replace low lytes. - If GI tract is NOT ok to use (ileus or obstruction), consider starting TPN with 150g dextrose. - Consider MVi w/ minerals and vitamin C to support wound healing. Plan of Care: RD following, monitoring for tolerance and adequacy, TF rec Nutrition reason for involvement: RN Consult TF recommendation RD Assessment 06/15 Chart reviewed. 78yo M, who came from [facility] after pulling out his G tube. Trach and PEG present on admission. Visited pt in the room. Pt was sleeping and non-verbal. Spoke with [facility] through the phone today to obtain TF info. Pt was getting Jevity 1.5 @60mL/hr for 22hr at the facility. Abd X-ray on 06/15 showed partially seen gas-filled stacked small bowel loops, representing obstruction versus ileus. Spoke with GAVIN Louis about the imaging results and that it is not appropriate for tube feeding if pt truly has SBO or ileus; TPN would be more appropriate. GAVIN Louis is aware and will notify Dr. Elliott. Will continue to monitor and follow. Principal Problems/Diagnoses: G tube dysfunction s/p PEG tube replacement on 06/15 PMH: throat cancer, HTN, hypercholesterolemia, stroke, NSTEMI, CHF GI: PEG presents Skin: stage II on right buttock, wound care consult pending Labs: (06/15) Na 123 L, BUN 5 L, Creatinine 0.5 L, Ca 8.3 L Meds: IV abx, IVF Ht: 67in Wt: 166.44lb BMI: 26.1kg/m2 IBW: 148 Malnutrition Evaluation (06/15/2018) The patient does not meet criteria for a specified degree of malnutrition at this time. Will re-evaluate at follow-up as appropriate. Nutrition Prescription (Diet Order): NPO Estimated Nutritional Needs: Calories: 1875-2250kcal(25-30kcal/kg/d) Weight used : Actual BW (75kg) Protein : 90-113g (1.2-1.5g/kg/d) Weight used: Actual BW (75kg) Diet Adequacy: Not meeting calorie needs, Not meeting protein needs Diet Education Needs Assessment: Diet education not indicated. Nutrition Care Level: low Nutrition Diagnosis: Inadequate energy intake related to current medical status as evidenced by NPO x2 days with no EN. Goal: Patient will meet 75-100% of estimated needs by follow up Progress: N/A Interventions: Composition, Rate, Route, IVF, Prescription medications, multivitamin/mineral supplement therapy Monitoring/Evaluation: Total energy intake, Total protein intake, Formula/Solution, IVF, Prescription medication Signed: Janette Flores MS, RD, LD
--- NOTE | 2018-06-15 17:25 | NUR ---
TUBE FEED JEVITY 1.2 STARTED AT 40CC/HR. ABDOMINAL BINDER IN PLACE. WOUND CARE TEAM VISITED PATIENT.
[2018-06-15] MEDS ORDERED: PROPOFOL IV EMULSION 10 MG/ML 20 ML VIAL ONE (18:28)
[2018-06-15] MEDS ORDERED: LIDOCAINE HCL 2% LOCAL INJ 5 ML SDV VIAL INJ ONE (18:28)
[2018-06-15] MEDS ORDERED: FENTANYL CITRATE/PF 100MCG/2 ML INJ ONE (18:42)
[2018-06-15] MEDS ORDERED: MIDAZOLAM HCL 2 MG/2 ML VIAL ONE (18:42)
[2018-06-15] MEDS: QUETIAPINE FUMARATE 25 MG TAB PEG SCH (21:36)
[2018-06-15] MEDS: ATORVASTATIN 40 MG TAB PO SCH (21:36)
--- NOTE | 2018-06-15 21:50 | NUR ---
2100-Patient has copious amount of secretions on the trach collar and around his chest. Secretions are creamy and pink/reddish in color. Respiratory was called and she sated she had already suctioned him recently, and that she also noticed the large amount of secretion. At 2129 I notified charge nurse of change of amount of secretions. She came an assessed the patient. I stopped his peg tube feedings as well that were going 40cc/hr. due to residuals of 70cc and hypoactive bowel sounds. We discussed moving the patient closer to nurses station to be able to monitor patient more frequently.
[2018-06-16] VITALS (7 sets, daily range): BP systolic 94–138; BP diastolic 55–76
[2018-06-16] MEDS: IPRATROPIUM/ALBUTEROL SULFATE 4 GM INH INH SCH ×2 (01:00→19:00)
[2018-06-16] MEDS: VANCOMYCIN 1GM/NS 250 ML 250 ML IV SCH ×2 (02:06→13:50)
[2018-06-16 05:20] LABS: BASOPHILS % 0.3 % (0.0-1.0); EOSINOPHILS # (AUTO) 0.3 (0.0-0.4); HEMATOCRIT 29.3 % (38.2-49.6); HEMOGLOBIN 9.2 g/dL (14.0-18.0); LYMPHOCYTES # (AUTO) 0.7 (1.0-3.2); MEAN CORPUSCULAR HEMOGLOBIN 24.8 pg (28-32); MEAN CORPUSCULAR HGB CONC 31.4 g/dL (31-35); MONOCYTES # (AUTO) 1.8 (0.2-0.8); MONOCYTES % 18.4 % (4.4-11.3); NEUTROPHILS # (AUTO) 6.7 (2.1-6.9); NEUTROPHILS % 70.4 % (38.7-80.0); PLATELET COUNT 125 x10e3/uL (140-360); RED BLOOD COUNT 3.71 x10e6/uL (4.3-5.7); RED CELL DISTRIBUTION WIDTH 17.3 % (11.7-14.4)
[2018-06-16] MEDS: LEVOTHYROXINE SODIUM 50 MCG TAB PEG SCH (05:25)
[2018-06-16 05:49] LABS: ANION GAP 9.6 mmol/L (8-16); BLOOD UREA NITROGEN 5 mg/dL (7-26); BUN/CREATININE RATIO 10 (6-25); CALCIUM 8.8 mg/dL (8.4-10.2); CARBON DIOXIDE 22 mmol/L (22-29); CHLORIDE 94 mmol/L (98-107); CREATININE, SERUM 0.52 mg/dL (0.72-1.25); EST GLOMERULAR FILTRATION RATE > 60 ML/MIN (60-); GLUCOSE 120 mg/dL (74-118); POTASSIUM 3.6 mmol/L (3.5-5.1); SODIUM 122 mmol/L (136-145)
[2018-06-16] MEDS: SODIUM CHLORIDE 0.9% 1000ML 1,000 ML IV SCH ×2 (06:15→22:16)
--- NOTE | 2018-06-16 06:18 | Diagnostic Imaging Report ---
CHEST SINGLE (PORTABLE), 06/16/2018 5:00 AM Technique: CHEST SINGLE (PORTABLE) Comparison: 06/13/2018 Clinical history: Fever Findings: See Impression Impression: 1. Lines/Tubes: Right PICC is again looped over the internal jugular vein before terminating over the right brachiocephalic vein. Recommend repositioning. Tracheostomy. 2. Stable cardiomediastinal silhouette. 3. Patchy bilateral opacities which may be due to atelectasis and/or infection. This is increased in the left lower lobe. 4. Possible small left effusion. Signed by: Dr Tasha Aburto MD on 06/16/2018 6:14 AM
--- NOTE | 2018-06-16 06:37 | NUR ---
Patient is laying in bed resting with eyes close and unlabored respirations.HOB elevated. No apparent distress. Has trach collar in place at 40%. O2sat @100. Moderate secretions creamy in color with a pink tinged, odorless. Feedings were restarted at 0200. Currently back at 40cc/hr. Patient tolerating feeds well.
--- NOTE | 2018-06-16 06:40 | NUR ---
rounded with maintenance mechanic 2nd shift nurse, patient aware of change. Patient in no distress, bed in lowest position
[2018-06-16 07:42] LABS: BAND NEUTROPHILS % (MANUAL) 1 %; EOSINOPHILS % (MANUAL) 3 % (0-7); LYMPHOCYTES % (MANUAL) 10 % (19-48); METAMYELOCYTES % (MANUAL) 2 % (0-0); MONOCYTES % (MANUAL) 12 % (3.4-9.0); NEUTROPHILS % (MANUAL) 71 % (40-74); NUCLEATED RED BLOOD CELLS 1
[2018-06-16 07:43] LABS: ANISOCYTOSIS SLIGHT; HYPOCHROMASIA MODERATE; PLATELET ESTIMATE SLIGHTLY DECREASED; PLATELET MORPHOLOGY COMMENT NORMAL; RBC MORPHOLOGY COMMENT NORMAL
[2018-06-16] MEDS: ASPIRIN 81 MG CHEW TAB PEG SCH (09:00)
[2018-06-16] MEDS: CHOLESTYRAMINE 4 GM PACKET PEG SCH ×3 (10:12→23:48)
[2018-06-16] MEDS: DOCUSATE SODIUM LIQD 100 MG/10 ML UDC PEG SCH ×2 (10:12→22:16)
[2018-06-16] MEDS: CARVEDILOL 3.125 MG TAB PEG SCH ×2 (10:12→18:00)
[2018-06-16] MEDS: FUROSEMIDE 40 MG TAB PEG SCH (10:12)
[2018-06-16] MEDS: FAMOTIDINE 20 MG TAB PEG SCH ×2 (10:12→18:01)
[2018-06-16] MEDS: CEFEPIME 1GM/NS 0.9% 50 ML 50 ML IV SCH ×2 (12:30→22:16)
--- NOTE | 2018-06-16 19:00 | NUR ---
report given to night nurse, patient in no distress and resting in bed, call bills in reach and side rails up
[2018-06-16] MEDS: QUETIAPINE FUMARATE 25 MG TAB PEG SCH (22:16)
[2018-06-16] MEDS: ATORVASTATIN 40 MG TAB PO SCH (22:16)
--- NOTE | 2018-06-16 23:00 | NUR ---
call placed to [facility] regarding settings for BIPAP, spoke with nurse who said she would have respiratory therapist call us back with settings. awaiting call back from respiratory therapist.
[2018-06-17] VITALS (8 sets, daily range): BP systolic 97–180; BP diastolic 56–81
[2018-06-17] MEDS: IPRATROPIUM/ALBUTEROL SULFATE 4 GM INH INH SCH ×4 (01:00→19:00)
--- NOTE | 2018-06-17 04:30 | NUR ---
patient had a temperature of 100 at 4am. temperature in room was lowered, and one bed cover was taken off of patient. patients temperature was rechecked 30minutes later and found to be 99.1. will continue to monitor patient's temperature.
[2018-06-17] MEDS: VANCOMYCIN 1GM/NS 250 ML 250 ML IV SCH ×2 (05:20→14:20)
[2018-06-17] MEDS: LEVOTHYROXINE SODIUM 50 MCG TAB PEG SCH (05:50)
--- NOTE | 2018-06-17 06:40 | NUR ---
rounded with control tower operator nurse, patient resting in bed. Patient in no distress and bed in lowest position.
--- NOTE | 2018-06-17 09:08 | NUR ---
NURSE STATES DR CHRISTIE TOLD HER THIS PT CAN [facility]URN [facility]. FAXED CLINICALS TO [phone]. WAITING ON AUTH.
[2018-06-17] MEDS: FUROSEMIDE 40 MG TAB PEG SCH (09:37)
[2018-06-17] MEDS: CARVEDILOL 3.125 MG TAB PEG SCH ×2 (09:37→17:25)
[2018-06-17] MEDS: DOCUSATE SODIUM LIQD 100 MG/10 ML UDC PEG SCH ×2 (09:37→23:17)
[2018-06-17] MEDS: FAMOTIDINE 20 MG TAB PEG SCH ×2 (09:38→17:25)
[2018-06-17] MEDS: ASPIRIN 81 MG CHEW TAB PEG SCH (09:38)
[2018-06-17] MEDS: CHOLESTYRAMINE 4 GM PACKET PEG SCH ×3 (09:38→23:17)
--- NOTE | 2018-06-17 09:38 | NUR ---
per dr salinas, ok to give asa, call [facility] to check if pt on coumadin, if so restart and check inr. updated pt nurse
[2018-06-17] MEDS: CEFEPIME 1GM/NS 0.9% 50 ML 50 ML IV SCH ×2 (11:01→23:17)
--- NOTE | 2018-06-17 19:10 | NUR ---
rounded with production shift supervisor nurse, patient aware of change. Patient in no distress, call bills within reach, bed in lowest position and side rails up
[2018-06-17] MEDS: SODIUM CHLORIDE 0.9% 1000ML 1,000 ML IV SCH (22:45)
[2018-06-17] MEDS: ATORVASTATIN 40 MG TAB PO SCH (23:17)
[2018-06-17] MEDS: QUETIAPINE FUMARATE 25 MG TAB PEG SCH (23:17)
[2018-06-18] VITALS (7 sets, daily range): BP systolic 120–142; BP diastolic 61–78
[2018-06-18] MEDS: IPRATROPIUM/ALBUTEROL SULFATE 4 GM INH INH SCH ×4 (01:00→19:00)
[2018-06-18] MEDS: VANCOMYCIN 1GM/NS 250 ML 250 ML IV SCH ×2 (03:05→14:36)
[2018-06-18] MEDS: LEVOTHYROXINE SODIUM 50 MCG TAB PEG SCH (06:58)
[2018-06-18] MEDS: ASPIRIN 81 MG CHEW TAB PEG SCH (08:39)
[2018-06-18] MEDS: DOCUSATE SODIUM LIQD 100 MG/10 ML UDC PEG SCH ×2 (08:39→22:17)
[2018-06-18] MEDS: FUROSEMIDE 40 MG TAB PEG SCH (08:39)
[2018-06-18] MEDS: FAMOTIDINE 20 MG TAB PEG SCH ×2 (08:39→17:39)
[2018-06-18] MEDS: CHOLESTYRAMINE 4 GM PACKET PEG SCH ×3 (08:39→22:17)
[2018-06-18] MEDS: CARVEDILOL 3.125 MG TAB PEG SCH ×2 (08:39→17:40)
[2018-06-18] MEDS: CEFEPIME 1GM/NS 0.9% 50 ML 50 ML IV SCH ×2 (10:34→22:26)
[2018-06-18] MEDS: SODIUM CHLORIDE 0.9% 1000ML 1,000 ML IV SCH (14:33)
--- NOTE | 2018-06-18 19:27 | NUR ---
Report received and walking rounds complete. Pt resting in bed and in no apparent distress. Pt has peg tube and trach collar. All safety measures ensured.
--- NOTE | 2018-06-18 19:58 | NUR ---
PEG tube flushed with 30cc NS. Pt tolerated well.
[2018-06-18] MEDS: QUETIAPINE FUMARATE 25 MG TAB PEG SCH (22:17)
[2018-06-18] MEDS: ATORVASTATIN 40 MG TAB PO SCH (22:17)
[2018-06-19] VITALS (8 sets, daily range): BP systolic 128–158; BP diastolic 62–74
[2018-06-19] MEDS: IPRATROPIUM/ALBUTEROL SULFATE 4 GM INH INH SCH (01:00)
[2018-06-19] MEDS: VANCOMYCIN 1GM/NS 250 ML 250 ML IV SCH ×2 (02:22→14:40)
[2018-06-19] MEDS: SODIUM CHLORIDE 0.9% 1000ML 1,000 ML IV SCH (03:43)
[2018-06-19 05:24] LABS: BASOPHILS % 0.6 % (0.0-1.0); EOSINOPHILS # (AUTO) 0.7 (0.0-0.4); HEMATOCRIT 30.6 % (38.2-49.6); HEMOGLOBIN 9.5 g/dL (14.0-18.0); LYMPHOCYTES % 15.7 % (18.0-39.1); MEAN CORPUSCULAR HEMOGLOBIN 24.9 pg (28-32); MEAN CORPUSCULAR VOLUME 80.1 fL (81-99); MONOCYTES # (AUTO) 1.1 (0.2-0.8); MONOCYTES % 16.9 % (4.4-11.3); NEUTROPHILS # (AUTO) 3.7 (2.1-6.9); NEUTROPHILS % 55.3 % (38.7-80.0); PLATELET COUNT 278 x10e3/uL (140-360); RED BLOOD COUNT 3.82 x10e6/uL (4.3-5.7); RED CELL DISTRIBUTION WIDTH 17.4 % (11.7-14.4)
[2018-06-19] MEDS: LEVOTHYROXINE SODIUM 50 MCG TAB PEG SCH (05:35)
[2018-06-19 05:49] LABS: ALANINE AMINOTRANSFERASE 18 IU/L (0-55); ALBUMIN 2.3 g/dL (3.5-5.0); ALBUMIN/GLOBULIN RATIO 0.6 (0.8-2.0); ALKALINE PHOSPHATASE 82 IU/L (40-150); ANION GAP 13.4 mmol/L (8-16); BLOOD UREA NITROGEN 5 mg/dL (7-26); BUN/CREATININE RATIO 10 (6-25); CALCIUM 9.1 mg/dL (8.4-10.2); CARBON DIOXIDE 28 mmol/L (22-29); CHLORIDE 99 mmol/L (98-107); CREATININE, SERUM 0.51 mg/dL (0.72-1.25); EST GLOMERULAR FILTRATION RATE > 60 ML/MIN (60-); GLUCOSE 115 mg/dL (74-118); POTASSIUM 3.4 mmol/L (3.5-5.1); SODIUM 137 mmol/L (136-145)
[2018-06-19] MEDS: CHOLESTYRAMINE 4 GM PACKET PEG SCH ×3 (09:09→20:35)
[2018-06-19] MEDS: FAMOTIDINE 20 MG TAB PEG SCH ×2 (09:09→17:20)
[2018-06-19] MEDS: ASPIRIN 81 MG CHEW TAB PEG SCH (09:09)
[2018-06-19] MEDS: DOCUSATE SODIUM LIQD 100 MG/10 ML UDC PEG SCH ×2 (09:09→20:35)
[2018-06-19] MEDS: CARVEDILOL 3.125 MG TAB PEG SCH ×2 (09:09→17:20)
[2018-06-19] MEDS: FUROSEMIDE 40 MG TAB PEG SCH (09:09)
[2018-06-19] MEDS: CEFEPIME 1GM/NS 0.9% 50 ML 50 ML IV SCH ×2 (12:14→23:00)
[2018-06-19] MEDS ORDERED: POTASSIUM CHLORIDE 10MEQ EA PO NR (14:30)
--- NOTE | 2018-06-19 15:02 | Diagnostic Imaging Report ---
EXAMINATION: CHEST SINGLE (PORTABLE) INDICATION: Pneumonia. COMPARISON: Chest radiograph 06/16/2018. FINDINGS: TUBES and LINES: Right-sided PICC is again noted to loop into the right internal jugular vein before terminating in the expected location of the right brachiocephalic vein. Tracheostomy is present. LUNGS: Persistent bibasilar opacities, left greater than right. Improved linear subsegmental atelectasis bilaterally. No evidence of pulmonary edema. PLEURA: Possible small bilateral pleural effusions. No evidence of pneumothorax. HEART AND MEDIASTINUM: Mild enlargement of the cardiomediastinal silhouette. BONES AND SOFT TISSUES: No acute osseous lesion. Soft tissues are unremarkable. UPPER ABDOMEN: No free air under the diaphragm. IMPRESSION: Persistent patchy bibasilar opacities, left greater the right, which may reflect atelectasis or pneumonia in the appropriate clinical setting. Possible small bilateral pleural effusions. As before, right PICC is looped in the internal jugular vein and terminates in the expected location of the right brachiocephalic vein. Repositioning is recommended. Signed by: Dr. Josefa Hollingsworth MD on 06/19/2018 2:59 PM
[2018-06-19] MEDS ORDERED: POTASSIUM CHLORIDE 20MEQ/15ML UDC PEG ONE (16:45)
--- NOTE | 2018-06-19 18:50 | NUR ---
Report received and walking rounds complete. Pt resting in bed in no apparent distress. Pt has PEG tube and trach collar. All safety measures ensured, bed alarm on, and pt call bills near.
[2018-06-19] MEDS: ATORVASTATIN 40 MG TAB PO SCH (20:35)
[2018-06-19] MEDS: QUETIAPINE FUMARATE 25 MG TAB PEG SCH (20:35)
[2018-06-20] MEDS: VANCOMYCIN 1GM/NS 250 ML 250 ML IV SCH ×2 (02:15→13:16)
[2018-06-20] MEDS: LEVOTHYROXINE SODIUM 50 MCG TAB PEG SCH (05:29)
[2018-06-20 05:38] LABS: BASOPHILS % 0.6 % (0.0-1.0); EOSINOPHILS # (AUTO) 0.7 (0.0-0.4); EOSINOPHILS % 10.7 % (0.0-6.0); HEMATOCRIT 30.9 % (38.2-49.6); HEMOGLOBIN 9.5 g/dL (14.0-18.0); LYMPHOCYTES % 16.3 % (18.0-39.1); MEAN CORPUSCULAR HEMOGLOBIN 24.5 pg (28-32); MEAN CORPUSCULAR HGB CONC 30.7 g/dL (31-35); MEAN CORPUSCULAR VOLUME 79.6 fL (81-99); MONOCYTES # (AUTO) 0.9 (0.2-0.8); MONOCYTES % 14.9 % (4.4-11.3); NEUTROPHILS # (AUTO) 3.5 (2.1-6.9); NEUTROPHILS % 56.7 % (38.7-80.0); PLATELET COUNT 288 x10e3/uL (140-360); RED BLOOD COUNT 3.88 x10e6/uL (4.3-5.7); RED CELL DISTRIBUTION WIDTH 17.5 % (11.7-14.4)
--- NOTE | 2018-06-20 05:40 | NUR ---
Peg tube feeding changed and new bottle of Jevity 1.2 hung.
[2018-06-20 06:03] LABS: ANION GAP 12.8 mmol/L (8-16); BLOOD UREA NITROGEN 6 mg/dL (7-26); BUN/CREATININE RATIO 12 (6-25); CALCIUM 9.1 mg/dL (8.4-10.2); CARBON DIOXIDE 27 mmol/L (22-29); CHLORIDE 98 mmol/L (98-107); CREATININE, SERUM 0.52 mg/dL (0.72-1.25); EST GLOMERULAR FILTRATION RATE > 60 ML/MIN (60-); GLUCOSE 112 mg/dL (74-118); POTASSIUM 3.8 mmol/L (3.5-5.1); SODIUM 134 mmol/L (136-145)
[2018-06-20 06:26] VITALS: BP 162/84
--- NOTE | 2018-06-20 07:03 | NUR ---
Report given to oncoming nurse
[2018-06-20 07:45] VITALS: BP 131/72
[2018-06-20] MEDS: DOCUSATE SODIUM LIQD 100 MG/10 ML UDC PEG SCH ×2 (09:22→20:47)
[2018-06-20] MEDS: ASPIRIN 81 MG CHEW TAB PEG SCH (09:22)
[2018-06-20] MEDS: CARVEDILOL 3.125 MG TAB PEG SCH ×2 (09:23→17:07)
[2018-06-20] MEDS: FAMOTIDINE 20 MG TAB PEG SCH ×2 (09:23→17:07)
[2018-06-20] MEDS: CHOLESTYRAMINE 4 GM PACKET PEG SCH ×3 (09:23→20:47)
[2018-06-20] MEDS: FUROSEMIDE 40 MG TAB PEG SCH (09:23)
[2018-06-20] MEDS: CEFEPIME 1GM/NS 0.9% 50 ML 50 ML IV SCH ×2 (12:03→23:10)
[2018-06-20 12:06] VITALS: BP 130/62
[2018-06-20] MEDS: SCOPOLAMINE 1.5 MG PATCH TOP SCH (13:19)
--- NOTE | 2018-06-20 15:30 | NUR ---
patient awake and alert in bed, lying on right side, medications given and peg tube assessed for residual, no residual noted, will continue to monitor
[2018-06-20 17:08] VITALS: BP 128/60
--- NOTE | 2018-06-20 17:50 | NUR ---
patient coughing and unable to clear secretions, patient suctioned at this time, will continue to monitor
--- NOTE | 2018-06-20 19:13 | NUR ---
Report received and walking rounds complete. Pt resting in bed and in apparent distress. Pt has trach and PEG tube. All safety measures ensured and pt bed alarm on.
[2018-06-20 19:16] VITALS: BP 135/72
[2018-06-20] MEDS: QUETIAPINE FUMARATE 25 MG TAB PEG SCH (20:47)
[2018-06-20] MEDS: ATORVASTATIN 40 MG TAB PO SCH (20:47)
--- NOTE | 2018-06-20 21:09 | NUR ---
PEG tube feeding changed and new bottle of Jevity 1.2 hung
[2018-06-21] VITALS (7 sets, daily range): BP systolic 121–139; BP diastolic 65–73
--- NOTE | 2018-06-21 02:37 | NUR ---
Janieo trough drawn. Lab called with critical value of 14.2. Called Dr. Collado who is covering for Dr. Letha Elliott to report critical lab. Awaiting call back.
--- NOTE | 2018-06-21 03:06 | NUR ---
2nd call placed to for critical labs. Dr. Collado called back, reported critical lab value, and MD stated OK to continue Vancomycin.
[2018-06-21] MEDS: VANCOMYCIN 1GM/NS 250 ML 250 ML IV SCH ×2 (03:12→15:02)
--- NOTE | 2018-06-21 04:49 | NUR ---
radiology on unit
[2018-06-21 05:16] LABS: BASOPHILS # (AUTO) 0.1 (0.0-0.1); BASOPHILS % 0.8 % (0.0-1.0); EOSINOPHILS # (AUTO) 0.6 (0.0-0.4); EOSINOPHILS % 9.1 % (0.0-6.0); HEMATOCRIT 32.8 % (38.2-49.6); HEMOGLOBIN 10.3 g/dL (14.0-18.0); LYMPHOCYTES # (AUTO) 1.3 (1.0-3.2); LYMPHOCYTES % 20.1 % (18.0-39.1); MEAN CORPUSCULAR HEMOGLOBIN 24.9 pg (28-32); MEAN CORPUSCULAR HGB CONC 31.4 g/dL (31-35); MEAN CORPUSCULAR VOLUME 79.2 fL (81-99); MONOCYTES # (AUTO) 0.9 (0.2-0.8); MONOCYTES % 13.5 % (4.4-11.3); NEUTROPHILS # (AUTO) 3.6 (2.1-6.9); NEUTROPHILS % 55.7 % (38.7-80.0); PLATELET COUNT 275 x10e3/uL (140-360); RED BLOOD COUNT 4.14 x10e6/uL (4.3-5.7); RED CELL DISTRIBUTION WIDTH 17.3 % (11.7-14.4)
[2018-06-21 05:41] LABS: ALANINE AMINOTRANSFERASE 18 IU/L (0-55); ALBUMIN 2.5 g/dL (3.5-5.0); ALBUMIN/GLOBULIN RATIO 0.7 (0.8-2.0); ALKALINE PHOSPHATASE 78 IU/L (40-150); ANION GAP 13.1 mmol/L (8-16); BLOOD UREA NITROGEN 8 mg/dL (7-26); BUN/CREATININE RATIO 15 (6-25); CALCIUM 9.5 mg/dL (8.4-10.2); CARBON DIOXIDE 27 mmol/L (22-29); CHLORIDE 95 mmol/L (98-107); CREATININE, SERUM 0.52 mg/dL (0.72-1.25); EST GLOMERULAR FILTRATION RATE > 60 ML/MIN (60-); GLUCOSE 107 mg/dL (74-118); POTASSIUM 4.1 mmol/L (3.5-5.1); SODIUM 131 mmol/L (136-145)
--- NOTE | 2018-06-21 05:50 | Diagnostic Imaging Report ---
CHEST SINGLE (PORTABLE), 06/21/2018 5:00 AM Technique: CHEST SINGLE (PORTABLE) Comparison: 06/19/2018 Clinical history: Left-sided pneumonia Findings: See Impression Impression: 1. Lines/Tubes: Stable right PICC, again looped over the internal jugular vein before terminating at the expected right brachiocephalic vein. Tracheostomy. 2. Stable enlarged cardiomediastinal silhouette. 3. Patchy left greater than right bibasilar opacities which may reflect atelectasis and/or pneumonia. Possible underlying left effusion. Signed by: Dr Tasha Aburto MD on 06/21/2018 5:47 AM
[2018-06-21] MEDS: LEVOTHYROXINE SODIUM 50 MCG TAB PEG SCH (05:55)
--- NOTE | 2018-06-21 07:00 | NUR ---
Report given to oncoming nurse. Walking rounds complete.
--- NOTE | 2018-06-21 07:55 | NUR ---
patient resting in bed, Alert with no distress, On Trach collar Oxygen on som 8L, PEG tube site is intact, keep monitoring
[2018-06-21] MEDS: CARVEDILOL 3.125 MG TAB PEG SCH ×2 (08:08→17:06)
[2018-06-21] MEDS: DOCUSATE SODIUM LIQD 100 MG/10 ML UDC PEG SCH ×2 (08:08→22:12)
[2018-06-21] MEDS: ASPIRIN 81 MG CHEW TAB PEG SCH (08:08)
[2018-06-21] MEDS: FUROSEMIDE 40 MG TAB PEG SCH (08:08)
[2018-06-21] MEDS: CHOLESTYRAMINE 4 GM PACKET PEG SCH ×3 (08:09→22:12)
[2018-06-21] MEDS: FAMOTIDINE 20 MG TAB PEG SCH ×2 (08:09→17:06)
--- NOTE | 2018-06-21 08:42 | NUR ---
oral care done,
[2018-06-21] MEDS: CEFEPIME 1GM/NS 0.9% 50 ML 50 ML IV SCH (11:14)
--- NOTE | 2018-06-21 12:05 | NUR ---
On walking rounds, changed patient with clean linen, cleaned trach collar secretions, PICC line is intact, repositioned, not in any resp distress, O2 sat 99% 8L Trach collar
--- NOTE | 2018-06-21 13:41 | NUR ---
FAXED CLINICALS AGAIN TO [facility] [phone]
--- NOTE | 2018-06-21 13:43 | NUR ---
Nutrition Intervention Note RD Recommendation(s) for Physician: - Continue TF of Jevity 1.2 @ 65mL/hr providing 1872kcal, 87g protein, and 1260mL fluids. meet 100% of est calorie and 97% est protein needs. - Rec free water flushes of 30mL q 4hr, additional per MD discretion. - Consider MVI w/ minerals and vitamin C to support wound healing. Plan of Care: RD following, monitoring for tolerance and adequacy, TF rec Nutrition reason for involvement: follow up RD Assessment 06/22: Follow up. Pt reviewed during am rounds. Pt tolerating TF of Jevity 1.2 @ goal rate of 65 ml/hr. Pt awake and alert at time of visit, denies any GI distress or abdominal pain. Currently on O2 via trach. Current TF remains appropriate. Pt with stage II wound to R buttocks, MVI with minerals and vitamin C rec's remain appropriate. Chart reviewed. Will monitor and continue to follow. 06/15 Chart reviewed. 78yo M, who came from [facility] after pulling out his G tube. Trach and PEG present on admission. Visited pt in the room. Pt was sleeping and non-verbal. Spoke with [facility] through the phone today to obtain TF info. Pt was getting Jevity 1.5 @60mL/hr for 22hr at the facility. Abd X-ray on 06/15 showed partially seen gas-filled stacked small bowel loops, representing obstruction versus ileus. Spoke with GAVIN Louis about the imaging results and that it is not appropriate for tube feeding if pt truly has SBO or ileus; TPN would be more appropriate. GAVIN Louis is aware and will notify Dr. Elliott. Will continue to monitor and follow. Principal Problems/Diagnoses: G tube dysfunction s/p PEG tube replacement on 06/15 PMH: throat cancer, HTN, hypercholesterolemia, stroke, NSTEMI, CHF GI: LBM 06/21; + PEG Skin: stage II on right buttock Labs: 06/21: Na 131, K 4.1, BUN 8, Cr 0.52, Gluc 107, Ca 9.5 (06/15) Na 123 L, BUN 5 L, Creatinine 0.5 L, Ca 8.3 L Meds: IV abx Ht: 67in Wt: 166.44lb BMI: 26.1kg/m2 IBW: 148 Malnutrition Evaluation (06/15/2018) The patient does not meet criteria for a specified degree of malnutrition at this time. Will re-evaluate at follow-up as appropriate. Nutrition Prescription (Diet Order): NPO Estimated Nutritional Needs: Calories: 1875-2250kcal(25-30kcal/kg/d) Weight used : Actual BW (75kg) Protein : 90-113g (1.2-1.5g/kg/d) Weight used: Actual BW (75kg) Diet Adequacy: Meeting calorie needs, meeting protein needs Diet Education Needs Assessment: Diet education not indicated. Nutrition Care Level: low Nutrition Diagnosis: Inadequate energy intake related to current medical status as evidenced by NPO x2 days with no EN. Goal: Patient will meet 75-100% of estimated needs by follow up Progress: Goal met, tolerating TF @ goal rate Interventions: Composition, Rate, Route, Prescription medications, multivitamin/mineral supplement therapy Monitoring/Evaluation: Total energy intake, Total protein intake, Formula/Solution, Prescription medication Signed: Carol Hogue RD, LD, CNSC
--- NOTE | 2018-06-21 15:02 | NUR ---
PICC LINE DRESSING CHANGED
--- NOTE | 2018-06-21 18:10 | NUR ---
patient resting in bed, not in any distress, on tube feeding.
[2018-06-21] MEDS: ATORVASTATIN 40 MG TAB PO SCH (22:12)
[2018-06-21] MEDS: QUETIAPINE FUMARATE 25 MG TAB PEG SCH (22:12)
[2018-06-22] VITALS: BP 147/70
[2018-06-22 04:00] VITALS: BP 139/66
[2018-06-22] MEDS: LEVOTHYROXINE SODIUM 50 MCG TAB PEG SCH (05:02)
[2018-06-22 08:01] VITALS: BP 126/68
--- NOTE | 2018-06-22 08:22 | NUR ---
patient resting in bed, HOB at 30 degrees, on tube feed diet, PICC line is intact, denies any pain, no distress noted, on Trach collar with Oxygen 8L
[2018-06-22] MEDS: CARVEDILOL 3.125 MG TAB PEG SCH ×2 (11:00→16:54)
[2018-06-22] MEDS: FAMOTIDINE 20 MG TAB PEG SCH ×2 (11:00→16:54)
[2018-06-22] MEDS: FUROSEMIDE 40 MG TAB PEG SCH (11:00)
[2018-06-22] MEDS: CHOLESTYRAMINE 4 GM PACKET PEG SCH ×3 (11:00→23:50)
[2018-06-22] MEDS: DOCUSATE SODIUM LIQD 100 MG/10 ML UDC PEG SCH ×2 (11:00→23:50)
[2018-06-22] MEDS: ASPIRIN 81 MG CHEW TAB PEG SCH (11:00)
[2018-06-22 12:24] VITALS: BP 129/72
--- NOTE | 2018-06-22 16:05 | NUR ---
New order recvd from Dr Andrea Elliott to renew IV Antibiotics.
[2018-06-22 16:10] VITALS: BP 153/78
[2018-06-22] MEDS: CEFEPIME 1GM/NS 0.9% 50 ML 50 ML IV SCH (16:40)
[2018-06-22] MEDS: VANCOMYCIN 1GM/NS 250 ML 250 ML IV SCH (17:20)
--- NOTE | 2018-06-22 18:31 | NUR ---
patient resting in bed, not in any distress, on tube feeding,
[2018-06-22 20:00] VITALS: BP 149/90
[2018-06-22] MEDS: QUETIAPINE FUMARATE 25 MG TAB PEG SCH (23:50)
[2018-06-22] MEDS: ATORVASTATIN 40 MG TAB PO SCH (23:50)
[2018-06-23] VITALS (7 sets, daily range): BP systolic 115–186; BP diastolic 58–81
[2018-06-23] MEDS: CEFEPIME 1GM/NS 0.9% 50 ML 50 ML IV SCH ×2 (04:20→16:28)
[2018-06-23] MEDS: VANCOMYCIN 1GM/NS 250 ML 250 ML IV SCH ×2 (05:18→16:28)
[2018-06-23] MEDS: LEVOTHYROXINE SODIUM 50 MCG TAB PEG SCH (05:18)
--- NOTE | 2018-06-23 07:38 | NUR ---
PT WAS DENIED FACILITY IS ASKING FOR A PEER TO PEER WILL GIVE NUMBER.
[2018-06-23] MEDS: DOCUSATE SODIUM LIQD 100 MG/10 ML UDC PEG SCH ×2 (09:09→21:45)
[2018-06-23] MEDS: ASPIRIN 81 MG CHEW TAB PEG SCH (09:09)
[2018-06-23] MEDS: FUROSEMIDE 40 MG TAB PEG SCH (09:10)
[2018-06-23] MEDS: CHOLESTYRAMINE 4 GM PACKET PEG SCH ×3 (09:10→21:45)
[2018-06-23] MEDS: CARVEDILOL 3.125 MG TAB PEG SCH ×2 (09:10→16:29)
[2018-06-23] MEDS: FAMOTIDINE 20 MG TAB PEG SCH ×2 (09:10→16:28)
[2018-06-23] MEDS: SCOPOLAMINE 1.5 MG PATCH TOP SCH (13:35)
--- NOTE | 2018-06-23 19:10 | NUR ---
Report received and walking rounds complete. Pt resting in bed and in no apparent distress. Pt has trach and PEG tube. All safety measures ensured, call bills near, and bed alarm on.
[2018-06-23] MEDS: ATORVASTATIN 40 MG TAB PO SCH (21:45)
[2018-06-23] MEDS: QUETIAPINE FUMARATE 25 MG TAB PEG SCH (21:45)
[2018-06-24] VITALS: BP 131/76
[2018-06-24] MEDS: CEFEPIME 1GM/NS 0.9% 50 ML 50 ML IV SCH (03:27)
[2018-06-24 04:00] VITALS: BP 152/67
[2018-06-24] MEDS: VANCOMYCIN 1GM/NS 250 ML 250 ML IV SCH (04:56)
[2018-06-24] MEDS: LEVOTHYROXINE SODIUM 50 MCG TAB PEG SCH (06:27)
--- NOTE | 2018-06-24 07:03 | NUR ---
Report given to oncoming nurse.
[2018-06-24 08:00] VITALS: BP 119/73
[2018-06-24] MEDS: FAMOTIDINE 20 MG TAB PEG SCH (08:43)
[2018-06-24] MEDS: DOCUSATE SODIUM LIQD 100 MG/10 ML UDC PEG SCH (08:43)
[2018-06-24] MEDS: FUROSEMIDE 40 MG TAB PEG SCH (08:43)
[2018-06-24] MEDS: ASPIRIN 81 MG CHEW TAB PEG SCH (08:43)
[2018-06-24] MEDS: CHOLESTYRAMINE 4 GM PACKET PEG SCH ×2 (08:43→16:28)
[2018-06-24] MEDS: CARVEDILOL 3.125 MG TAB PEG SCH (08:44)
[2018-06-24 12:00] VITALS: BP 119/68
--- NOTE | 2018-06-24 12:41 | NUR ---
received pt lying in bed with eyes open, Resp even and unlabored. Trach noted with trach collar @28% O2. denies pain at this time. PEG noted in place. drain to right flank. oriented to room and use of call light, call light placed within reach and instructed to call for assistance.
--- NOTE | 2018-06-24 12:42 | NUR ---
patient transferred to floor. all belongings transferred with patient. report called. vitals stable with no distress at time of transfer.
--- NOTE | 2018-06-24 14:00 | NUR ---
PT APPROVED TO RETURN TO [facility] ROOM [address] CHRISTIE
--- NOTE | 2018-06-24 14:30 | NUR ---
spoke to sister Ellie in regards to patient d/c from hospital today and transferring to [facility] and she agreed.
--- NOTE | 2018-06-24 14:40 | NUR ---
2 attempts made to give report for this patient going to room 508B, unsuccesful. will notify CM.
--- NOTE | 2018-06-24 15:10 | NUR ---
MARVIN was able to get a hold of nurse Rasheed to give report on this patient. this nurse gave report to nurse Rasheed and patient will be going to room 508B.
[2018-06-24 15:50] VITALS: BP 124/66
--- NOTE | 2018-06-24 16:46 | NUR ---
CALLED DAUGHTER MORGAN KNUTSON [phone] TO ALERT PT RETURNING TO [facility], NO PREFERENCE OF AMBULANCE. EDUCATED ABOUT IMM AND MEDICARE RIGHTS.
--- NOTE | 2018-06-24 17:30 | NUR ---
pt d/c via stretcher ambulance acocmpanied by EMS. patient going to [facility]. RUE picc left in place for continued IV antibiotics. PEg in place. t-tube drain in place to right flank. pt denied pain upon d/c. trach in place with O2 @28% via trach collar.
== END 2018-06-24 17:03 | DRG 393 ==
LOC: EDSEX → ER 15:21 → ERHOLD 23:53 → IMCU 06-14 00:07 → OBSVTOIN 06-15 14:10 → IMCU 06-15 22:23 → MED/SURG2 06-24 12:09
PROC: 02HV33Z Insertion of Infusion Device into Superior Vena Cava, Percutaneous Approach (ICD-10-PCS; 2018-06-13)
PROC: 0D748ZZ Dilation of Esophagogastric Junction, Via Natural or Artificial Opening Endoscopic (ICD-10-PCS; principal; 2018-06-15 11:41)
PROC: 0DH63UZ Insertion of Feeding Device into Stomach, Percutaneous Approach (ICD-10-PCS; 2018-06-15 11:41)
DX: Z43.1 Encounter for attention to gastrostomy (principal); J96.90 Respiratory failure, unspecified, unspecified whether with hypoxia or hypercapnia; J15.6 Pneumonia due to other Gram-negative bacteria; J69.0 Pneumonitis due to inhalation of food and vomit; K26.4 Chronic or unspecified duodenal ulcer with hemorrhage; E87.1 Hypo-osmolality and hyponatremia; I69.351 Hemiplegia and hemiparesis following cerebral infarction affecting right dominant side; R47.01 Aphasia; E03.9 Hypothyroidism, unspecified; E87.6 Hypokalemia; D63.8 Anemia in other chronic diseases classified elsewhere; K20.9 Esophagitis, unspecified; K22.2 Esophageal obstruction; K44.9 Diaphragmatic hernia without obstruction or gangrene; K29.70 Gastritis, unspecified, without bleeding; I11.0 Hypertensive heart disease with heart failure; I50.9 Heart failure, unspecified
CPT/HCPCS: 36415; 43246; 43450; 71045; 74018; 80048; 80053; 80202; 83735; 83880; 85025; 85610; 85730; 87040; 87070; 87086; 87186; 87205; 93005; 96361; 96366; 99284; G0378; J0692; J2001; J2250; J3370; J7030

== ENCOUNTER 2018-07-18 19:31 | Emergency (ER) | payer MEDICARE ==
[~2018-07-18] VITALS: Ht 170.2 cm; Wt 70.3 kg
[~2018-07-18 19:31] MED LIST: ACETAMINOPHEN650 M1 PEG; AMANTADINE50 MG/5 ML PEG; ASPIRIN CHEW81 MG PEG; ATORVASTATIN CA20 MG PEG; COMBIVENT RESPIM4 GM IH; COREG3.125 MG PEG; DOCUSATE SODIU100 MG PEG; HYDRALAZINE HCL10 MG PEG; LACTULOSE20 GM/30 M PEG; LASIX40 MG PEG; LEVOTHYROXINE25 MCG PEG; PEPCID20 MG PEG; QUESTRAN PACKET4 GM PEG; SEROQUEL25 MG PEG; ZOFRAN4 MG/5 ML PEG
--- OUTSIDE RECORDS SUMMARY | 2018-07-18 19:33 | XMS REPORT | Continuity of Care Document ---
Author Author [facility] Interface Address Unknown Phone Unavailable Problems Problem Status Onset Date Classification Date Reported Comments Source CVA NON HEMORRHAGIC Active 02/28/2018 [facility] ALTERED MENTAL STATUS, FLACCID HEMIPLEGI Active 02/26/2018 [facility] STROKE SYMPTOMS Active 02/26/2018 [facility] ALTERED MENTAL STATUS, UNSPECIFIED Active [facility] FLACCID HEMIPLEGIA AFFECTING RIGHT DOMIN Active [facility] ACUTE RESPIRATORY FAILURE WITH HYPOXIA Active [facility] ILLNESS, UNSPECIFIED Active [facility] Medications Medication Details Route Status Patient Instructions [...] Delonte Crooks MD 03/12/18 23:08 FINAL REPORT [facility] Ext Upper Venous Doppler Bilat US Ext [...] jugular vein and left upper extremity veins.. [id number] 03/09/2018 - - Read by: Obinna Van MD Dictated Date/time: 03/09/18 12:53 Electronically Signed by: Obinna Van MD 03/09/18 12:57 FINAL REPORT [facility] Ext Lower Venous Doppler Bilat US Ext [...] Pepe Martel MD 03/09/18 12:38 FINAL REPORT [facility] Chest 1view DX Chest 1view DX HISTORY: [...] congestion seen. 4. No evidence of pneumothorax. [id number] 03/09/2018 - - Read by: Yifan Read MD Dictated Date/time: 03/09/18 09:33 Electronically Signed by: Yifan Read MD 03/09/18 09:35 FINAL REPORT [facility] Chest 1view DX Chest 1view DX EXAM: [...] Bay Resendez MD 03/07/18 08:57 FINAL REPORT [facility] Gastric tube placement VR Gastric tube placement VR PROCEDURE: Gastrostomy tube placement Procedural Personnel Attending physician(s): Dayron Peterson MD Pre-procedure diagnosis: Dysphagia, supplemental enteral nutrition needed Post-procedure diagnosis: Same Indication: Nutritional support Additional clinical history: None Complications: No immediate complications. IMPRESSION: Percutaneous placement of 18 [place] push-type gastrostomy tube. Plan: Gastrostomy tube can [...] Dayron Peterson MD 03/14/18 14:26 FINAL REPORT [facility] Abdomen RUQ US Abdomen RUQ US EXAM: [...] Bharat Garcia MD 03/05/18 16:37 FINAL REPORT [facility] Chest 1view DX Chest 1view DX EXAM: [...] Bay Resendez MD 03/05/18 09:49 FINAL REPORT [facility] Abdomen/Pelvis wo IV contrast CT Abdomen/Pelvis wo [...] Valdemar Hall MD 03/04/18 23:24 FINAL REPORT [facility] Abdomen AP DX Abdomen AP DX CLINICAL [...] Pepe Martel MD 02/28/18 15:59 FINAL REPORT [facility] Chest 1 v for Placement DX Chest [...] with tip below the diaphragm, beyond the [id number] of this examination. No significant osseous abnormalities are identified. IMPRESSION: Left PICC line with tip in the superior SVC. 02/28/2018 - - Read by: Pepe Martel MD Dictated Date/time: 02/28/18 15:55 Electronically Signed by: Pepe Martel MD 02/28/18 15:57 FINAL REPORT [facility] Chest 1view DX Chest 1view DX EXAM: Chest radiograph HISTORY: Respiratory failure COMPARISON: 02/27/2018 at 2323 hours TECHNIQUE: Portable frontal view of the chest FINDINGS: Life support lines and cardiomediastinal contour are stable. Possible COPD. No appreciable pneumonia, edema, or significant pleural effusion. SL: [id number] 02/28/2018 - - Read by: Oniel Redman MD Dictated Date/time: 02/28/18 07:01 Electronically Signed by: Oniel Redman MD 02/28/18 07:03 FINAL REPORT [facility] Chest 1view DX Chest 1view DX [...] disease. Support devices as described above. SL: [id number] 02/27/2018 - - Read by: Carisa Smith MD Dictated Date/time: 02/27/18 23:34 Electronically Signed by: Carisa Smith MD 02/27/18 23:35 FINAL REPORT [facility] Abdomen AP DX Abdomen AP DX XR ABDOMEN 1V HISTORY: - screening for MRI. COMPARISON: None. FINDINGS: Nonspecific gas pattern. Nasogastric tube noted, tip located over the distal stomach. No organomegaly or significant calcification. No significant skeletal abnormality. IMPRESSION: 1. Nonspecific abdomen, no acute finding. 2. NG tube over the stomach distal stomach. SL: [id number] 02/27/2018 - - Read by: Vishal Hairston MD Dictated Date/time: 02/27/18 11:41 Electronically Signed by: Vishal Hairston MD 02/27/18 11:43 FINAL REPORT [facility] Chest 1view DX Chest 1view DX EXAM: Chest radiograph HISTORY: Respiratory failure COMPARISON: 02/26/2018 at 1329 hours TECHNIQUE: Frontal view of the chest FINDINGS/IMPRESSION: Stable endotracheal and nasogastric tubes. Heart size normal. COPD. Mild interstitial opacities left lower lobe may reflect superimposed vessels, subsegmental atelectasis, or pneumonia. Small pleural effusions bilaterally. Question acute fracture left seventh rib. SL: [id number] 02/27/2018 - - Read by: Oniel Redman MD Dictated Date/time: 02/27/18 07:08 Electronically Signed by: Oniel Redman MD 02/27/18 07:11 FINAL REPORT [facility] Neck wo contrast MRA Neck wo [...] MD 02/27/18 17:51 FINAL REPORT [facility] Brain wo contrast MRI Brain wo [...] MD 02/27/18 17:12 FINAL REPORT [facility] Brain wo contrast MRA Brain wo contrast MRA Clinical Indication: - right hemiplegia Comparison: None Technique: Magnetic resonance angiography of the [place] was performed without contrast. 3D [...] MD 02/27/18 17:23 FINAL REPORT [facility] Abdomen AP DX Abdomen AP DX [...] centimeters into the stomach is advised. SL: [id number] 02/26/2018 - - Read by: Yifan Yoon MD Dictated Date/time: 02/26/18 14:29 Electronically Signed by: Yifan Yoon MD 02/26/18 14:29 FINAL REPORT [facility] Brain wo contrast CT Brain wo [...] without mass, hemorrhage or subacute stroke. SL: [id number] 02/26/2018 - - Read by: Wilian Mota MD Dictated Date/time: 02/26/18 14:21 Electronically Signed by: Wilian Mota MD 02/26/18 14:24 FINAL REPORT [facility] Brain wo contrast CT Brain wo contrast CT Patient Name: DENILSON LEMOS : 1955; Age: 62 years y/o Male MR: [id number] Study: Brain wo contrast CT 02/26/2018 12:30 [...] Manley 02/26/18 13:18 FINAL REPORT [facility] Chest 1view DX Chest 1view DX [...] post intubation and enteric tube placement. SL: [id number] 02/26/2018 - - Read by: Wilian Mota MD Dictated Date/time: 02/26/18 13:38 Electronically Signed by: Wilian Mota MD 02/26/18 13:39 FINAL REPORT [facility] Vital Signs Vital Sign Value Date Comments Source Encounters Location Location Details Encounter Type Encounter Number Reason For Visit Attending Provider ADM Date DC Date Status Source Procedures Procedure Code Date Perfomer Comments Source
--- NOTE | 2018-07-18 19:38 | NUR ---
rec'd pt via ems from the [facility] for low sodium. placed on the monitor and iv access established. peg tube intact and dresssing c.d.i. nephrostomy tube to the right flank. trach collar in place. v.s.s. right upper arm picc line -double lumen.
[2018-07-18 19:53] LABS: BASOPHILS # (AUTO) 0.1 (0.0-0.1); BASOPHILS % 1.1 % (0.0-1.0); EOSINOPHILS # (AUTO) 0.6 (0.0-0.4); HEMATOCRIT 34.4 % (34.2-44.1); LYMPHOCYTES # (AUTO) 0.9 (1.0-3.2); LYMPHOCYTES % 17.7 % (18.0-39.1); MEAN CORPUSCULAR HEMOGLOBIN 24.2 pg (28-32); MEAN CORPUSCULAR VOLUME 75.6 fL (81-99); MONOCYTES # (AUTO) 0.9 (0.2-0.8); MONOCYTES % 16.8 % (4.4-11.3); NEUTROPHILS # (AUTO) 2.7 (2.1-6.9); PLATELET COUNT 254 x10e3/uL (140-360); RED BLOOD COUNT 4.55 x10e6/uL (3.6-5.1); RED CELL DISTRIBUTION WIDTH 16.6 % (11.7-14.4)
[2018-07-18 20:13] LABS: ALANINE AMINOTRANSFERASE 16 IU/L (0-55); ALBUMIN 3.3 g/dL (3.5-5.0); ALBUMIN/GLOBULIN RATIO 0.8 (0.8-2.0); ALKALINE PHOSPHATASE 84 IU/L (40-150); ANION GAP 15.6 mmol/L (8-16); BLOOD UREA NITROGEN 12 mg/dL (7-26); BUN/CREATININE RATIO 20 (6-25); CALCIUM 9.7 mg/dL (8.4-10.2); CARBON DIOXIDE 22 mmol/L (22-29); CHLORIDE 87 mmol/L (98-107); CREATININE, SERUM 0.61 mg/dL (0.57-1.11); EST GLOMERULAR FILTRATION RATE > 60 ML/MIN (60-); GLUCOSE 82 mg/dL (74-118); POTASSIUM 4.6 mmol/L (3.5-5.1); SODIUM 120 mmol/L (136-145)
--- NOTE | 2018-07-18 20:23 | NUR ---
Na+--[address] moody was notified
[2018-07-18] MEDS ORDERED: SODIUM CHLORIDE 0.9% 1000ML 1,000 ML IV ONE (20:30)
[2018-07-18 20:47] VITALS: BP 123/73
--- NOTE | 2018-07-18 21:17 | NUR ---
DC'D BACK TO [facility]. REPORT CALLED. [facility] HERE TO TX PT.
== END 2018-07-18 21:17 | disposition home or self-care (01) ==
LOC: EDSEX 19:31 → ER 19:31
DX: E87.1 Hypo-osmolality and hyponatremia (principal); K52.9 Noninfective gastroenteritis and colitis, unspecified; I10 Essential (primary) hypertension; I50.9 Heart failure, unspecified; E03.9 Hypothyroidism, unspecified; I25.2 Old myocardial infarction; Z86.73 Personal history of transient ischemic attack (TIA), and cerebral infarction without residual deficits
CPT/HCPCS: 36415; 80053; 85025; 99284; J7030